=== PATIENT | female | born 1940 | race Caucasian/White ===

== ENCOUNTER → 2016-04-07 | Outpatient (REF) | payer MEDICARE, MEDICAID ==
[2016-04-07 17:50] LABS: BASO # 0.2 K/mm3 (0.0-0.2); BASO % 1.7 % (0.0-1.0); EOS # 0.2 K/mm3 (0.0-0.50); LARGE UNSTAINED CELL # 0.1 K/mm3 (0.0-0.4); LARGE UNSTAINED CELL % 0.8 % (0.0-4.0); LYMPH # 0.9 K/mm3 (1.5-4.5); LYMPH % 7.2 % (24.0-44.0); MEAN CORPUSCULAR HEMOGLOBIN 27.7 pg (27.0-33.0); MEAN CORPUSCULAR HGB CONC 31.9 g/dl (32.0-36.5); MEAN CORPUSCULAR VOLUME 86.8 fl (80.0-96.0); MONO # 0.5 K/mm3 (0.0-0.8); MONO % 4.2 % (0.0-5.0); NEUTROPHILS # 9.2 K/mm3 (1.8-7.7); NEUTROPHILS % 84.1 % (36.0-66.0); PLATELET COUNT, AUTOMATED 277 k/mm3 (150-450); RED CELL DISTRIBUTION WIDTH 14.7 % (11.5-14.5)
[2016-04-07 18:34] LABS: ALBUMIN 3.7 GM/DL (3.2-5.2); ALBUMIN/GLOBULIN RATIO 1.32 (1.00-1.93); ALKALINE PHOSPHATASE 147 U/L (45-117); ALT/SGPT 14 U/L (12-78); ANION GAP 7 MEQ/L (8-16); AST/SGOT 10 U/L (15-37); BILIRUBIN,TOTAL 1.1 MG/DL (0.2-1.0); BLOOD UREA NITROGEN 15 MG/DL (7-18); CALCIUM LEVEL 8.7 MG/DL (8.8-10.2); CARBON DIOXIDE LEVEL 36 MEQ/L (21-32); CHLORIDE LEVEL 101 MEQ/L (98-107); CHOLESTEROL LEVEL 190 MG/DL (<200); CREATININE FOR GFR 0.74 MG/DL (0.55-1.02); GLOMERULAR FILTRATION RATE > 60.0 (>39); GLUCOSE, FASTING 101 MG/DL (83-110); POTASSIUM SERUM 4.4 MEQ/L (3.5-5.1); SODIUM LEVEL 144 MEQ/L (136-145); TOTAL PROTEIN 6.5 GM/DL (6.4-8.2); TRIGLYCERIDES LEVEL 64 MG/DL (<150)
== END ==
LOC: M SFHCCLAY 10:49
PROVIDERS: ATTEND Family Medicine
DX: R53.83 Other fatigue (principal); E78.5 Hyperlipidemia, unspecified; R73.01 Impaired fasting glucose; E55.9 Vitamin D deficiency, unspecified
CPT/HCPCS: 80053; 80061; 82652; 83036; 84443; 85025; G0463

== ENCOUNTER → 2016-11-18 | Outpatient (REF) | payer MEDICARE, MEDICAID ==
[2016-11-19 11:56] LABS: ANION GAP 8 MEQ/L (8-16); BLOOD UREA NITROGEN 17 MG/DL (7-18); CALCIUM LEVEL 8.5 MG/DL (8.8-10.2); CARBON DIOXIDE LEVEL 32 MEQ/L (21-32); CHLORIDE LEVEL 107 MEQ/L (98-107); CREATININE FOR GFR 0.61 MG/DL (0.55-1.02); GLOMERULAR FILTRATION RATE > 60.0 (>39); GLUCOSE, FASTING 107 MG/DL (83-110); POTASSIUM SERUM 4.4 MEQ/L (3.5-5.1); SODIUM LEVEL 147 MEQ/L (136-145)
== END ==
LOC: M SFHCCLAY 13:37
PROVIDERS: ATTEND Family Medicine
DX: R73.01 Impaired fasting glucose (principal)
CPT/HCPCS: 80048; 83036; G0463

== ENCOUNTER 2017-09-17 20:15 | Inpatient (IN) | payer MEDICARE, MEDICAID ==
[2017-09-17] MEDS: CitaloPRAM (CeleXA) 20 MG TAB PO (21:00)
[2017-09-17] MEDS: busPIRone 10 MG TAB PO (21:00)
[2017-09-17] MEDS: NS 1,000 ML IV (21:03)
[2017-09-17] MEDS ORDERED: ACETAMINOPHEN TAB 650MG DOSE (2X325MG) PO (21:15)
[2017-09-17] MEDS: methylPREDNISolone INJ 40 MG/1 ML VIAL (J2920) IV (22:00)
[2017-09-17] MEDS: MAGNESIUM OXIDE 400 MG TAB (MAG-OX) PO (22:00)
[2017-09-17] MEDS: POTASSIUM CHLORIDE 10 MEQ SR TABLET PO (22:00)
[2017-09-17] MEDS ORDERED: DEXTROMETHORPHAN 60MG/10ML SUSP 90ML BTL(DELSYM) PO (22:15)
[2017-09-17 22:59] LABS: ANION GAP 7 MEQ/L (8-16); BILIRUBIN,DIRECT 0.3 MG/DL (0.0-0.2); BLOOD UREA NITROGEN 16 MG/DL (7-18); CALCIUM LEVEL 8.2 MG/DL (8.8-10.2); CARBON DIOXIDE LEVEL 33 MEQ/L (21-32); CHLORIDE LEVEL 103 MEQ/L (98-107); CREATININE FOR GFR 0.57 MG/DL (0.55-1.30); GLOMERULAR FILTRATION RATE > 60.0 (>39); GLUCOSE, FASTING 241 MG/DL (70-100); MAGNESIUM LEVEL 1.9 MG/DL (1.8-2.4); POTASSIUM SERUM 3.9 MEQ/L (3.5-5.1); SODIUM LEVEL 143 MEQ/L (136-145)
[2017-09-17 23:49] LABS: INFLUENZA A AMPLIFICATION NEGATIVE (NEGATIVE); INFLUENZA B AMPLIFICATION NEGATIVE (NEGATIVE)
[2017-09-18] MEDS: methylPREDNISolone INJ 40 MG/1 ML VIAL (J2920) IV ×3 (06:00→21:07)
[2017-09-18 06:43] LABS: HEMATOCRIT 42.7 % (36.0-47.0); HEMOGLOBIN 13.2 g/dl (12.0-15.5); MEAN CORPUSCULAR HEMOGLOBIN 27.2 pg (27.0-33.0); MEAN CORPUSCULAR HGB CONC 30.9 g/dl (32.0-36.5); PLATELET COUNT, AUTOMATED 355 10^3/uL (150-450); RED BLOOD COUNT 4.85 10^6/uL (4.00-5.40); RED CELL DISTRIBUTION WIDTH 13.7 % (11.5-14.5)
[2017-09-18 06:57] LABS: POS COUNT POS FLAG
[2017-09-18 06:59] LABS: WHITE BLOOD COUNT 31.2 10^3/uL (4.0-10.0)
[2017-09-18 07:04] LABS: ALBUMIN 2.5 GM/DL (3.2-5.2); ALBUMIN/GLOBULIN RATIO 0.63 (1.00-1.93); ALKALINE PHOSPHATASE 119 U/L (45-117); ALT/SGPT 13 U/L (12-78); ANION GAP 7 MEQ/L (8-16); AST/SGOT 6 U/L (7-37); BILIRUBIN,DIRECT 0.2 MG/DL (0.0-0.2); BILIRUBIN,TOTAL 0.7 MG/DL (0.2-1.0); BLOOD UREA NITROGEN 19 MG/DL (7-18); CALCIUM LEVEL 8.3 MG/DL (8.8-10.2); CARBON DIOXIDE LEVEL 34 MEQ/L (21-32); CHLORIDE LEVEL 104 MEQ/L (98-107); CREATININE FOR GFR 0.53 MG/DL (0.55-1.30); GLOMERULAR FILTRATION RATE > 60.0 (>39); GLUCOSE, FASTING 201 MG/DL (70-100); POTASSIUM SERUM 4.7 MEQ/L (3.5-5.1); SODIUM LEVEL 145 MEQ/L (136-145); TOTAL PROTEIN 6.5 GM/DL (6.4-8.2)
[2017-09-18] MEDS: TIOTROPIUM INHALER/CAPSULE (SPIRIVA) INH (07:07)
[2017-09-18] MEDS: SYMBICORT 160/4.5MCG INHALER 6GM INH ×2 (07:07→20:07)
[2017-09-18] MEDS: IPRATROPIUM 0.5MG/ALBUTEROL 2.5MG INH SOL UD 3ML (DUONEB)(J7620) NEB ×4 (07:07→20:00)
[2017-09-18 07:36] LABS: ERYTHROCYTE SEDIMENTATION RATE 47 mm/hr (0-30)
[2017-09-18] MEDS: ENOXAPARIN 40 MG/0.4 ML SYRINGE (J1650) SC (08:13)
[2017-09-18] MEDS: MAGNESIUM OXIDE 400 MG TAB (MAG-OX) PO ×2 (08:13→21:06)
[2017-09-18] MEDS: ATORVASTATIN 20 MG TAB PO (08:13)
[2017-09-18] MEDS: busPIRone 10 MG TAB PO ×2 (08:13→21:05)
[2017-09-18] MEDS: LORATADINE 10 MG TAB PO (08:14)
[2017-09-18] MEDS: AZITHROMYCIN INJ 500 MG, VIAL MATE ADAPTER 1 EACH in D5W 250 ML IV (08:14)
[2017-09-18] MEDS: VITAMIN D 1,000 INTERNATIONAL UNITS TABLET PO (08:19)
[2017-09-18] MEDS: PANTOPRAZOLE 40MG TAB (PROTONIX) PO (08:19)
[2017-09-18] MEDS: cefTRIAXone SOD 2 GM in D5W 50 ML IV (09:33)
[2017-09-18] MEDS: NS 1,000 ML IV (10:23)
[2017-09-18 16:02] LABS: REASON FOR REVIEW WBC/LEUKEMIA/BLAST; SLIDE REVIEW Report; SOURCE PERIPHERAL SMEAR
[2017-09-18] MEDS ORDERED: NON-FORMULARY COMPOUNDED MEDICATION PO (21:00)
[2017-09-18] MEDS: CitaloPRAM (CeleXA) 20 MG TAB PO (21:06)
[2017-09-18] MEDS ORDERED: diltiaZEM 125 MG in NS 100 ML IV (23:30)
[2017-09-18] MEDS: METOPROLOL 5 MG/5 ML VIAL IV (23:36)
[2017-09-19] MEDS: METOPROLOL TART 25 MG TABLET PO ×3 (00:34→21:35)
[2017-09-19] MEDS: NS 1,000 ML IV (03:59)
[2017-09-19 05:20] LABS: HEMATOCRIT 42.6 % (36.0-47.0); HEMOGLOBIN 12.7 g/dl (12.0-15.5); MEAN CORPUSCULAR HEMOGLOBIN 26.6 pg (27.0-33.0); MEAN CORPUSCULAR HGB CONC 29.8 g/dl (32.0-36.5); MEAN CORPUSCULAR VOLUME 89.3 fl (80.0-96.0); PLATELET COUNT, AUTOMATED 360 10^3/uL (150-450); RED BLOOD COUNT 4.77 10^6/uL (4.00-5.40); RED CELL DISTRIBUTION WIDTH 13.8 % (11.5-14.5)
[2017-09-19 05:38] LABS: ALBUMIN 2.6 GM/DL (3.2-5.2); ALBUMIN/GLOBULIN RATIO 0.68 (1.00-1.93); ALKALINE PHOSPHATASE 120 U/L (45-117); ALT/SGPT 13 U/L (12-78); ANION GAP 6 MEQ/L (8-16); AST/SGOT 5 U/L (7-37); BILIRUBIN,TOTAL 0.4 MG/DL (0.2-1.0); BLOOD UREA NITROGEN 23 MG/DL (7-18); CALCIUM LEVEL 8.6 MG/DL (8.8-10.2); CARBON DIOXIDE LEVEL 34 MEQ/L (21-32); CHLORIDE LEVEL 105 MEQ/L (98-107); CREATININE FOR GFR 0.59 MG/DL (0.55-1.30); GLOMERULAR FILTRATION RATE > 60.0 (>39); GLUCOSE, FASTING 225 MG/DL (70-100); POTASSIUM SERUM 4.7 MEQ/L (3.5-5.1); SODIUM LEVEL 145 MEQ/L (136-145); TOTAL PROTEIN 6.4 GM/DL (6.4-8.2)
[2017-09-19] MEDS: methylPREDNISolone INJ 40 MG/1 ML VIAL (J2920) IV (06:20)
[2017-09-19] MEDS: TIOTROPIUM INHALER/CAPSULE (SPIRIVA) INH (07:49)
[2017-09-19] MEDS: SYMBICORT 160/4.5MCG INHALER 6GM INH ×2 (07:49→19:43)
[2017-09-19] MEDS: IPRATROPIUM 0.5MG/ALBUTEROL 2.5MG INH SOL UD 3ML (DUONEB)(J7620) NEB ×3 (07:49→19:51)
[2017-09-19] MEDS: AZITHROMYCIN INJ 500 MG, VIAL MATE ADAPTER 1 EACH in D5W 250 ML IV (08:37)
[2017-09-19] MEDS: ATORVASTATIN 20 MG TAB PO (08:37)
[2017-09-19] MEDS: PANTOPRAZOLE 40MG TAB (PROTONIX) PO (08:38)
[2017-09-19] MEDS: VITAMIN D 1,000 INTERNATIONAL UNITS TABLET PO (08:38)
[2017-09-19] MEDS: LORATADINE 10 MG TAB PO (08:38)
[2017-09-19] MEDS: busPIRone 10 MG TAB PO ×2 (08:38→21:34)
[2017-09-19] MEDS: MAGNESIUM OXIDE 400 MG TAB (MAG-OX) PO ×2 (08:38→21:35)
[2017-09-19] MEDS: ENOXAPARIN 40 MG/0.4 ML SYRINGE (J1650) SC (08:39)
[2017-09-19] MEDS: cefTRIAXone SOD 2 GM in D5W 50 ML IV (10:00)
[2017-09-19 12:31] LABS: BASO # 0.1 10^3/uL (0.0-0.2); BASO % 0.2 % (0.0-1.0); HEMATOCRIT 43.7 % (36.0-47.0); HEMOGLOBIN 13.4 g/dl (12.0-15.5); LYMPH # 0.3 10^3/uL (1.5-4.5); LYMPH % 1.1 % (24.0-44.0); MEAN CORPUSCULAR HEMOGLOBIN 27.5 pg (27.0-33.0); MEAN CORPUSCULAR HGB CONC 30.7 g/dl (32.0-36.5); MEAN CORPUSCULAR VOLUME 89.7 fl (80.0-96.0); MONO # 0.6 10^3/uL (0.0-0.8); MONO % 2.2 % (0.0-5.0); PLATELET COUNT, AUTOMATED 389 10^3/uL (150-450); RED BLOOD COUNT 4.87 10^6/uL (4.00-5.40); RED CELL DISTRIBUTION WIDTH 13.9 % (11.5-14.5); WHITE BLOOD COUNT 26.5 10^3/uL (4.0-10.0)
[2017-09-19 12:51] LABS: THYROID STIMULATING HORMONE 0.114 uIU/ML (0.358-3.740)
[2017-09-19 12:54] LABS: POSITIVE DIFF POS FLAG
[2017-09-19 12:55] LABS: NEUTROPHILS % 94.5 % (36.0-66.0)
[2017-09-19] MEDS: predniSONE 20 MG TAB PO (15:14)
[2017-09-19] MEDS: CitaloPRAM (CeleXA) 20 MG TAB PO (21:34)
[2017-09-20 05:12] LABS: HEMATOCRIT 42.3 % (36.0-47.0); HEMOGLOBIN 12.9 g/dl (12.0-15.5); MEAN CORPUSCULAR HEMOGLOBIN 27.3 pg (27.0-33.0); MEAN CORPUSCULAR HGB CONC 30.5 g/dl (32.0-36.5); MEAN CORPUSCULAR VOLUME 89.6 fl (80.0-96.0); PLATELET COUNT, AUTOMATED 323 10^3/uL (150-450); RED BLOOD COUNT 4.72 10^6/uL (4.00-5.40); RED CELL DISTRIBUTION WIDTH 13.7 % (11.5-14.5); WHITE BLOOD COUNT 18.2 10^3/uL (4.0-10.0)
[2017-09-20 05:35] LABS: ALBUMIN 2.5 GM/DL (3.2-5.2); ALBUMIN/GLOBULIN RATIO 0.71 (1.00-1.93); ALKALINE PHOSPHATASE 101 U/L (45-117); ALT/SGPT 14 U/L (12-78); ANION GAP 3 MEQ/L (8-16); AST/SGOT 5 U/L (7-37); BILIRUBIN,TOTAL 0.4 MG/DL (0.2-1.0); BLOOD UREA NITROGEN 25 MG/DL (7-18); CALCIUM LEVEL 8.4 MG/DL (8.8-10.2); CARBON DIOXIDE LEVEL 39 MEQ/L (21-32); CHLORIDE LEVEL 101 MEQ/L (98-107); CREATININE FOR GFR 0.58 MG/DL (0.55-1.30); GLOMERULAR FILTRATION RATE > 60.0 (>39); GLUCOSE, FASTING 211 MG/DL (70-100); POTASSIUM SERUM 4.6 MEQ/L (3.5-5.1); SODIUM LEVEL 143 MEQ/L (136-145)
[2017-09-20] MEDS: IPRATROPIUM 0.5MG/ALBUTEROL 2.5MG INH SOL UD 3ML (DUONEB)(J7620) NEB ×3 (07:16→15:24)
[2017-09-20] MEDS: TIOTROPIUM INHALER/CAPSULE (SPIRIVA) INH (07:16)
[2017-09-20] MEDS: SYMBICORT 160/4.5MCG INHALER 6GM INH ×2 (07:16→19:42)
[2017-09-20] MEDS: AZITHROMYCIN INJ 500 MG, VIAL MATE ADAPTER 1 EACH in D5W 250 ML IV (08:04)
[2017-09-20] MEDS: predniSONE 20 MG TAB PO (09:34)
[2017-09-20] MEDS: ENOXAPARIN 40 MG/0.4 ML SYRINGE (J1650) SC (09:34)
[2017-09-20] MEDS: MAGNESIUM OXIDE 400 MG TAB (MAG-OX) PO ×2 (09:35→20:12)
[2017-09-20] MEDS: VITAMIN D 1,000 INTERNATIONAL UNITS TABLET PO (09:36)
[2017-09-20] MEDS: busPIRone 10 MG TAB PO ×2 (09:36→20:13)
[2017-09-20] MEDS: METOPROLOL TART 25 MG TABLET PO ×2 (09:36→20:15)
[2017-09-20] MEDS: LORATADINE 10 MG TAB PO (09:36)
[2017-09-20] MEDS: cefTRIAXone SOD 2 GM in D5W 50 ML IV (09:36)
[2017-09-20] MEDS: ATORVASTATIN 20 MG TAB PO (09:36)
[2017-09-20] MEDS: PANTOPRAZOLE 40MG TAB (PROTONIX) PO (09:37)
[2017-09-20 13:23] LABS: FREE THYROXINE INDEX 3.2 % (1.3-4.8); T UPTAKE 41 % (30-39); THYROID STIMULATING HORMONE 0.054 uIU/ML (0.358-3.740); THYROXINE (T4) 7.8 UG/DL (4.5-12.0)
[2017-09-20] MEDS: ASPIRIN 325 MG TAB PO (13:35)
[2017-09-20 14:13] LABS: ESTIMATED AVERAGE GLUCOSE 154 MG/DL (60-110)
[2017-09-20] MEDS: CitaloPRAM (CeleXA) 20 MG TAB PO (20:11)
[2017-09-20] MEDS: CEFDINIR 300 MG CAP (OMNICEF) PO (20:15)
[2017-09-21 05:07] LABS: HEMATOCRIT 43.1 % (36.0-47.0); HEMOGLOBIN 13.3 g/dl (12.0-15.5); MEAN CORPUSCULAR HEMOGLOBIN 27.4 pg (27.0-33.0); MEAN CORPUSCULAR HGB CONC 30.9 g/dl (32.0-36.5); MEAN CORPUSCULAR VOLUME 88.9 fl (80.0-96.0); PLATELET COUNT, AUTOMATED 295 10^3/uL (150-450); RED BLOOD COUNT 4.85 10^6/uL (4.00-5.40); RED CELL DISTRIBUTION WIDTH 13.8 % (11.5-14.5); WHITE BLOOD COUNT 13.8 10^3/uL (4.0-10.0)
[2017-09-21 05:25] LABS: ALBUMIN 2.6 GM/DL (3.2-5.2); ALBUMIN/GLOBULIN RATIO 0.76 (1.00-1.93); ALKALINE PHOSPHATASE 99 U/L (45-117); ALT/SGPT 13 U/L (12-78); ANION GAP 4 MEQ/L (8-16); AST/SGOT 5 U/L (7-37); BILIRUBIN,TOTAL 0.7 MG/DL (0.2-1.0); BLOOD UREA NITROGEN 23 MG/DL (7-18); CALCIUM LEVEL 8.2 MG/DL (8.8-10.2); CARBON DIOXIDE LEVEL 41 MEQ/L (21-32); CHLORIDE LEVEL 100 MEQ/L (98-107); CREATININE FOR GFR 0.56 MG/DL (0.55-1.30); GLOMERULAR FILTRATION RATE > 60.0 (>39); GLUCOSE, FASTING 111 MG/DL (70-100); POTASSIUM SERUM 4.2 MEQ/L (3.5-5.1); SODIUM LEVEL 145 MEQ/L (136-145)
[2017-09-21] MEDS: SYMBICORT 160/4.5MCG INHALER 6GM INH ×2 (07:58→21:25)
[2017-09-21] MEDS: TIOTROPIUM INHALER/CAPSULE (SPIRIVA) INH (07:58)
[2017-09-21] MEDS: ASPIRIN 325 MG TAB PO (08:56)
[2017-09-21] MEDS: ENOXAPARIN 40 MG/0.4 ML SYRINGE (J1650) SC (08:56)
[2017-09-21] MEDS: AZITHROMYCIN 250 MG TAB PO (08:57)
[2017-09-21] MEDS: PANTOPRAZOLE 40MG TAB (PROTONIX) PO (08:57)
[2017-09-21] MEDS: predniSONE 20 MG TAB PO (08:57)
[2017-09-21] MEDS: ATORVASTATIN 20 MG TAB PO (08:57)
[2017-09-21] MEDS: MAGNESIUM OXIDE 400 MG TAB (MAG-OX) PO ×2 (08:57→20:42)
[2017-09-21] MEDS: CEFDINIR 300 MG CAP (OMNICEF) PO ×2 (08:57→20:41)
[2017-09-21] MEDS: LORATADINE 10 MG TAB PO (08:58)
[2017-09-21] MEDS: VITAMIN D 1,000 INTERNATIONAL UNITS TABLET PO (08:58)
[2017-09-21] MEDS: busPIRone 10 MG TAB PO ×2 (08:58→20:41)
[2017-09-21] MEDS: METOPROLOL TART 25 MG TABLET PO ×2 (08:58→20:43)
[2017-09-21] MEDS ORDERED: SLF 3 ML SYR IV (18:45)
[2017-09-21] MEDS: CitaloPRAM (CeleXA) 20 MG TAB PO (20:41)
[2017-09-21] MEDS: SLF 3 ML SYR IV (22:00)
[2017-09-22 00:07] LABS: BODY FLUID CULTURE Not Indicated (.); LEGIONELLA ANTIGEN URINE Negative (Negative); ORGANISM ID Not indicated. (.); SPECIMEN SOURCE Urine (.); URINE STREP PNEUMONIAE ANTIGEN Negative (Negative)
[2017-09-22] MEDS: SLF 3 ML SYR IV ×3 (05:29→21:23)
[2017-09-22 05:37] LABS: HEMATOCRIT 43.6 % (36.0-47.0); HEMOGLOBIN 13.7 g/dl (12.0-15.5); MEAN CORPUSCULAR HEMOGLOBIN 27.4 pg (27.0-33.0); MEAN CORPUSCULAR HGB CONC 31.4 g/dl (32.0-36.5); MEAN CORPUSCULAR VOLUME 87.2 fl (80.0-96.0); PLATELET COUNT, AUTOMATED 297 10^3/uL (150-450); RED CELL DISTRIBUTION WIDTH 13.6 % (11.5-14.5); WHITE BLOOD COUNT 12.9 10^3/uL (4.0-10.0)
[2017-09-22 06:03] LABS: ALBUMIN 2.7 GM/DL (3.2-5.2); ALBUMIN/GLOBULIN RATIO 0.82 (1.00-1.93); ALKALINE PHOSPHATASE 93 U/L (45-117); ALT/SGPT 15 U/L (12-78); ANION GAP 4 MEQ/L (8-16); AST/SGOT 6 U/L (7-37); BILIRUBIN,TOTAL 1.4 MG/DL (0.2-1.0); BLOOD UREA NITROGEN 27 MG/DL (7-18); CALCIUM LEVEL 8.3 MG/DL (8.8-10.2); CARBON DIOXIDE LEVEL 40 MEQ/L (21-32); CHLORIDE LEVEL 99 MEQ/L (98-107); CREATININE FOR GFR 0.58 MG/DL (0.55-1.30); GLOMERULAR FILTRATION RATE > 60.0 (>39); GLUCOSE, FASTING 100 MG/DL (70-100); SODIUM LEVEL 143 MEQ/L (136-145)
[2017-09-22] MEDS: SYMBICORT 160/4.5MCG INHALER 6GM INH ×2 (07:20→20:24)
[2017-09-22] MEDS: TIOTROPIUM INHALER/CAPSULE (SPIRIVA) INH (07:20)
[2017-09-22] MEDS: ASPIRIN 325 MG TAB PO (09:00)
[2017-09-22] MEDS: ENOXAPARIN 40 MG/0.4 ML SYRINGE (J1650) SC (09:00)
[2017-09-22] MEDS: CEFDINIR 300 MG CAP (OMNICEF) PO ×2 (09:00→20:54)
[2017-09-22] MEDS: VITAMIN D 1,000 INTERNATIONAL UNITS TABLET PO (09:00)
[2017-09-22] MEDS: METOPROLOL TART 25 MG TABLET PO ×2 (09:01→20:55)
[2017-09-22] MEDS: AZITHROMYCIN 250 MG TAB PO (09:01)
[2017-09-22] MEDS: busPIRone 10 MG TAB PO ×2 (09:01→20:55)
[2017-09-22] MEDS: MAGNESIUM OXIDE 400 MG TAB (MAG-OX) PO ×2 (09:01→20:54)
[2017-09-22] MEDS: LORATADINE 10 MG TAB PO (09:01)
[2017-09-22] MEDS: predniSONE 20 MG TAB PO (09:01)
[2017-09-22] MEDS: ATORVASTATIN 20 MG TAB PO (09:01)
[2017-09-22] MEDS: PANTOPRAZOLE 40MG TAB (PROTONIX) PO (09:07)
[2017-09-22] MEDS: CitaloPRAM (CeleXA) 20 MG TAB PO (20:54)
[2017-09-23 04:09] LABS: HEMATOCRIT 44.7 % (36.0-47.0); MEAN CORPUSCULAR HEMOGLOBIN 27.3 pg (27.0-33.0); MEAN CORPUSCULAR HGB CONC 31.3 g/dl (32.0-36.5); MEAN CORPUSCULAR VOLUME 87.3 fl (80.0-96.0); PLATELET COUNT, AUTOMATED 292 10^3/uL (150-450); RED BLOOD COUNT 5.12 10^6/uL (4.00-5.40); RED CELL DISTRIBUTION WIDTH 13.3 % (11.5-14.5); WHITE BLOOD COUNT 14.2 10^3/uL (4.0-10.0)
[2017-09-23 04:28] LABS: ALBUMIN 2.8 GM/DL (3.2-5.2); ALBUMIN/GLOBULIN RATIO 0.85 (1.00-1.93); ALKALINE PHOSPHATASE 94 U/L (45-117); ALT/SGPT 15 U/L (12-78); ANION GAP 4 MEQ/L (8-16); AST/SGOT 4 U/L (7-37); BILIRUBIN,TOTAL 1.3 MG/DL (0.2-1.0); BLOOD UREA NITROGEN 28 MG/DL (7-18); CALCIUM LEVEL 8.1 MG/DL (8.8-10.2); CARBON DIOXIDE LEVEL 39 MEQ/L (21-32); CHLORIDE LEVEL 100 MEQ/L (98-107); CREATININE FOR GFR 0.62 MG/DL (0.55-1.30); GLOMERULAR FILTRATION RATE > 60.0 (>39); GLUCOSE, FASTING 143 MG/DL (70-100); SODIUM LEVEL 143 MEQ/L (136-145); TOTAL PROTEIN 6.1 GM/DL (6.4-8.2)
[2017-09-23] MEDS: SLF 3 ML SYR IV (05:17)
[2017-09-23] MEDS: TIOTROPIUM INHALER/CAPSULE (SPIRIVA) INH (07:34)
[2017-09-23] MEDS: SYMBICORT 160/4.5MCG INHALER 6GM INH (07:35)
[2017-09-23] MEDS: CEFDINIR 300 MG CAP (OMNICEF) PO (09:44)
[2017-09-23] MEDS: ENOXAPARIN 40 MG/0.4 ML SYRINGE (J1650) SC (09:44)
[2017-09-23] MEDS: PANTOPRAZOLE 40MG TAB (PROTONIX) PO (09:44)
[2017-09-23] MEDS: busPIRone 10 MG TAB PO (09:44)
[2017-09-23] MEDS: ASPIRIN 325 MG TAB PO (09:44)
[2017-09-23] MEDS: AZITHROMYCIN 250 MG TAB PO (09:44)
[2017-09-23] MEDS: predniSONE 20 MG TAB PO (09:44)
[2017-09-23] MEDS: ATORVASTATIN 20 MG TAB PO (09:45)
[2017-09-23] MEDS: VITAMIN D 1,000 INTERNATIONAL UNITS TABLET PO (09:45)
[2017-09-23] MEDS: LORATADINE 10 MG TAB PO (09:45)
[2017-09-23] MEDS: METOPROLOL TART 25 MG TABLET PO (09:45)
[2017-09-23] MEDS: MAGNESIUM OXIDE 400 MG TAB (MAG-OX) PO (09:45)
== END 2017-09-23 12:30 | disposition home or self-care (01) | DRG 193 ==
LOC: M PCU 09-19 00:12 → M ICU 09-18 23:27
DX: J18.9 Pneumonia, unspecified organism (principal); J96.20 Acute and chronic respiratory failure, unspecified whether with hypoxia or hypercapnia; J44.1 Chronic obstructive pulmonary disease with (acute) exacerbation; Z66 Do not resuscitate; I48.0 Paroxysmal atrial fibrillation; K21.9 Gastro-esophageal reflux disease without esophagitis; F41.9 Anxiety disorder, unspecified; J30.9 Allergic rhinitis, unspecified; E66.9 Obesity, unspecified; E55.9 Vitamin D deficiency, unspecified; F32.9 Major depressive disorder, single episode, unspecified; E78.5 Hyperlipidemia, unspecified; Z99.81 Dependence on supplemental oxygen; Z90.49 Acquired absence of other specified parts of digestive tract; Z90.710 Acquired absence of both cervix and uterus; Z98.49 Cataract extraction status, unspecified eye; Z87.891 Personal history of nicotine dependence; Z79.899 Other long term (current) drug therapy; Z79.51 Long term (current) use of inhaled steroids

== ENCOUNTER → 2018-01-26 | Outpatient (REF) | payer MEDICARE, MEDICAID ==
[2018-01-26 17:25] LABS: ALBUMIN 3.2 GM/DL (3.2-5.2); ALBUMIN/GLOBULIN RATIO 1.07 (1.00-1.93); ALKALINE PHOSPHATASE 110 U/L (45-117); ALT/SGPT 13 U/L (12-78); ANION GAP 7 MEQ/L (8-16); AST/SGOT 11 U/L (7-37); BILIRUBIN,TOTAL 0.8 MG/DL (0.2-1.0); BLOOD UREA NITROGEN 15 MG/DL (7-18); CALCIUM LEVEL 8.5 MG/DL (8.8-10.2); CARBON DIOXIDE LEVEL 36 MEQ/L (21-32); CHLORIDE LEVEL 101 MEQ/L (98-107); GLOMERULAR FILTRATION RATE > 60.0 (>39); GLUCOSE, FASTING 109 MG/DL (70-100); POTASSIUM SERUM 3.5 MEQ/L (3.5-5.1); SODIUM LEVEL 144 MEQ/L (136-145); TOTAL PROTEIN 6.2 GM/DL (6.4-8.2)
[2018-01-26 17:33] LABS: ESTIMATED AVERAGE GLUCOSE 128 MG/DL (60-110); HEMOGLOBIN A1c 6.1 %
== END ==
LOC: M SFHCCLAY 11:38
DX: R73.01 Impaired fasting glucose (principal)
CPT/HCPCS: 80053

== ENCOUNTER → 2018-03-09 | Outpatient (CLI) | payer MEDICARE, MEDICAID ==
[~2018-03-09] MED LIST: ALBU83IN INH; ASPI1TAB20 PO; ATOR1TAB21 PO; AZIT-12 PO; BUSP10TA PO; CELE20TA PO; CITA-230 PO; DALI1TAB2 PO; LORA-243 PO; METO1TAB87 PO; OMEP-221 PO; PRED10TA2 PO; PRED20TA PO; PROAAER10 INH; ROBI30SU PO; SYMB16INH INH; TIOT18INH INH; VITA125C2 PO; VITA200038 PO
--- NOTE | 2018-03-10 05:34 | REP ---
Clinical: History of COPD with dyspnea. Technique: PA and lateral. Comparison: None. Findings: Diffuse chronic-appearing interstitial changes and scattered scarring / fibrosis noted. Superimposed bibasilar atelectasis is suggested along with possible interstitial edema. No effusion. No pneumothorax. Mediastinum and cardiac silhouette within normal limits. Skeletal structures demonstrate diffuse osteopenia and degenerative change. Impression: Chronic changes with superimposed bibasilar atelectasis and possible interstitial edema.
== END ==
LOC: M CLY 14:04
PROVIDERS: ATTEND Family Medicine
DX: J98.11 Atelectasis (principal); M85.88 Other specified disorders of bone density and structure, other site; J44.1 Chronic obstructive pulmonary disease with (acute) exacerbation
CPT/HCPCS: 71046; G0463

== ENCOUNTER → 2018-06-24 | Outpatient (CLI) | payer MEDICARE ==
--- NOTE | 2018-06-24 12:38 | REP ---
Chest two views HISTORY: Cough Comparison: 03/09/2018 An increase in interstitial markings is present in the lungs consistent with chronic interstitial fibrosis. The cardiac silhouette is enlarged. The pulmonary vasculature is prominent. The bony structure is intact. IMPRESSION: 1. Chronic interstitial fibrosis. 2. Cardiomegaly.
== END ==
LOC: M CLY 11:49
PROVIDERS: ATTEND Family Medicine
DX: J84.10 Pulmonary fibrosis, unspecified (principal); I51.7 Cardiomegaly; R05 Cough; R06.02 Shortness of breath

== ENCOUNTER 2018-06-27 01:57 | Inpatient (IN) | payer MEDICARE ==
[~2018-06-27] VITALS: Ht 147.3 cm; Wt 75.0 kg
[2018-06-27] VITALS (25 sets, daily range): BP systolic 102–168; BP diastolic 56–75; O2SAT 98–99
[~2018-06-27 01:57] MED LIST changes: -CITA-230 PO; +CITA20TA7 PO
[2018-06-27 04:42] LABS: ABG BASE EXCESS 5.9 (-2.0-2.0); ABG HCO3 39.5 MEQ/L (22.0-26.0); ABG O2 SATURATION 98.8 % (95.0-99.0); ABG PARTIAL PRESSURE CO2 121.9 mmHg (35.0-45.0); ABG PARTIAL PRESSURE O2 150.6 mmHg (75.0-100.0); ABG STANDARD HCO3 29.9 MEQ/L (22.0-26.0); ABG TOTAL CO2 43.3 MEQ/L (23.0-31.0); ABG pH (ARTERIAL) 7.129 UNITS (7.350-7.450)
[2018-06-27] MEDS ORDERED: PRED20TA PO (04:50)
[2018-06-27] MEDS ORDERED: METO25TA4 PO (04:50)
[2018-06-27 05:06] LABS: HEMOGLOBIN 13.1 g/dl (12.0-15.5); MEAN CORPUSCULAR HEMOGLOBIN 27.6 pg (27.0-33.0); MEAN CORPUSCULAR HGB CONC 29.8 g/dl (32.0-36.5); MEAN CORPUSCULAR VOLUME 92.6 fl (80.0-96.0); PLATELET COUNT, AUTOMATED 335 10^3/uL (150-450); RED BLOOD COUNT 4.75 10^6/uL (4.00-5.40)
[2018-06-27 05:26] LABS: ALBUMIN 2.9 GM/DL (3.2-5.2); ALT/SGPT 14 U/L (12-78); BILIRUBIN,TOTAL 1.3 MG/DL (0.2-1.0); BLOOD UREA NITROGEN 24 MG/DL (7-18); CALCIUM LEVEL 8.3 MG/DL (8.8-10.2); CARBON DIOXIDE LEVEL 35 MEQ/L (21-32); CHLORIDE LEVEL 100 MEQ/L (98-107); CREATININE FOR GFR 0.86 MG/DL (0.55-1.30); GLOMERULAR FILTRATION RATE > 60.0 (>39); GLUCOSE, FASTING 238 MG/DL (70-100); SODIUM LEVEL 139 MEQ/L (136-145); TOTAL PROTEIN 7.4 GM/DL (6.4-8.2)
[2018-06-27] MEDS ORDERED: VANCOMYCIN HCL 1,000 MG, VIAL MATE ADAPTER 1 EACH in D5W 250 ML IV ONE (05:30)
[2018-06-27 05:35] LABS: WHITE BLOOD COUNT 36.3 10^3/uL (4.0-10.0)
[2018-06-27 05:46] LABS: CPK CREATINE PHOSPHOKINASE 104 U/L (26-192); MB/CK RELATIVE INDEX 2.69 (< OR =4); TROPONIN I < 0.02 NG/ML (< 0.10)
[2018-06-27 05:58] LABS: ABG BASE EXCESS 2.5 (-2.0-2.0); ABG HCO3 36.2 MEQ/L (22.0-26.0); ABG O2 SATURATION 99.1 % (95.0-99.0); ABG PARTIAL PRESSURE O2 158.2 mmHg (75.0-100.0); ABG STANDARD HCO3 26.7 MEQ/L (22.0-26.0)
[2018-06-27 06:01] LABS: ABG PARTIAL PRESSURE CO2 121.1 mmHg (35.0-45.0); ABG pH (ARTERIAL) 7.094 UNITS (7.350-7.450)
[2018-06-27] MEDS ORDERED: SODIUM BICARBONATE 8.4% INJ 50 ML SYRINGE IV STA (06:03)
[2018-06-27] MEDS ORDERED: SODIUM BICARBONATE 8.4% INJ 50 ML SYRINGE As Ordered ONE (06:04)
[2018-06-27] MEDS ORDERED: ETOMIDATE INJ 20MG/10ML VIAL As Ordered ONE (06:07)
[2018-06-27] MEDS ORDERED: SUCCINYLCHOLINE INJ 200 MG/10 ML VIAL (J0330) As Ordered ONE (06:07)
[2018-06-27] MEDS ORDERED: PROPOFOL 1,000 MG/100 ML VIAL As Ordered ONE (06:12)
--- NOTE | 2018-06-27 06:27 | HPEPDOC ---
[facility] Medical History & Physical Date of Admission Jun 27, 2018 History and Physical CHIEF COMPLAINT: Shortness of breath HISTORY OF PRESENT ILLNESS: Emily Novoa is a 77 YO F with history of COPD (on 2L home O2) who presented as transfer from [facility] with shortness of breath and altered mental status. Reportedly, her shortness of breath started about 1 week ago and has been gradually worsening. The dyspnea is described as moderate and is worsened by walking, exertion and cough. The patient has had sputum production. No fever, chills, chest pain, or peripheral edema reported. No sick contacts reported. At [facility], she was found to have a narrow complex SVT in the 190s with RBBB and questionable Q waves, was given 6mg followed by 12mg Adenosine with no response and was subsequently place on a Cardizem drip. Upon arrival at [facility] her heart rate was in the 120s. A CXR was suspicious for RLL infiltrate and her oxygen saturation was in the 80s on 4-5L oxygen. It was determined that she might need BiPaP treatment, so she was transferred to [facility]. PAST MEDICAL HISTORY: 1. Gastroesophageal reflux disease. 2. Chronic respiratory failure secondary to COPD, normally on 2 liters of oxygen at home at night. 3. Depression/anxiety. 4. Hyperlipidemia. 5. History of one prior intubation for pneumonia. PAST SURGICAL HISTORY: 1. cholecystectomy. 2. cataract surgery. 3. hysterectomy. SOCIAL HISTORY: Lives with her sister. Ex-smoker, stopped in 2001. Denies alcoh ol use. FAMILY HISTORY: Reviewed and noncontributory. REVIEW OF SYSTEMS: Unable to obtain HOME MEDICATIONS: Please see below. PHYSICAL EXAMINATION: VITAL SIGNS: Temperature 98.4, pulse 128, respiratory rate 26, blood pressure 148/63, pulse oximetry 97% on 70%FiO2 GENERAL APPEARANCE: Laying in bed, not responding, using accessory muscles of breathing HEENT: dry mucus membranes CARDIOVASCULAR: tachycardia, no murmurs/rubs/gallops LUNGS: rhoncherous breath sounds diffusely ABDOMEN: soft, nontender to palpation, +BS MUSCULOSKELETAL: moves all extremities well EXTREMITIES: no clubbing/cyanosis/edema NEUROLOGICAL: unable to assess PSYCHIATRIC: unable to assess LABORATORY DATA: See below. IMAGING: MICROBIOLOGY: Please see below. ASSESSMENT: This is a 77 YO F with history of COPD on home oxygen who presented as transfer from [facility] for COPD exacerbation vs bacterial pneumonia with hypoxemia and sinus tachycardia. She will be admitted to the ICU for close observation and BiPaP ventilation PLAN: #Hypoxemia: COPD exacerbation vs bacterial pneumonia vs Sepsis -Patient was reportedly had fevers, chills and WBC 28.0 at [facility] -Vancomycin and Zosyn coverage for sepsis with plan to de-escalate -Blood cultures pending -Sputum culture pending -Respiratory panel pending -AB.129/121/150 -Lactic acid pending -s/p IV Decadron 8mg #Narrow complex tachycardia: Patient did not respond to Adenosine x2 -Cardizem 15mg IV -EKG demonstrates sinus rhythm with RBBB and ST depression Laboratory Data Labs 24H Laboratory Tests 2 06/27/18 04:36: Blood Gas Bicarbonate Standard 29.9H, Arterial Blood pH 7.129*L, Arterial Blood Partial Pressure CO2 121.9*H, Arterial Blood Partial Pressure O2 150.6H, Arterial Blood Total CO2 43.3H, Arterial Blood HCO3 39.5H, Arterial Blood Base Excess 5.9H, Arterial Blood Oxygen Saturation 98.8 06/27/18 04:56: CBC/BMP Microbiology Microbiology 06/27/18 Blood Culture, Received Pending Home Medications Scheduled Albuterol Sulfate (Proair Hfa) 108 Mcg/Act Aer, 2 PUFF INH BID Ascorbic Acid (Vitamin C Gummies) 125 Mg Chw, 125 MG PO DAILY Atorvastatin Calcium (Atorvastatin Calcium) 20 Mg Tab, 20 MG PO DAILY Budesonide/Formoterol (Symbicort 160-4.5 Mcg Inhaler) 60 Puff/Inhaler Aers, 2 PUFF INH BID Buspirone HCl (Buspirone HCl) 10 Mg Tab, 10 MG PO BID Cholecalciferol (Vitamin D3) (Vitamin D3) 2,000 Unit Tab, 2,000 UNIT PO DAILY Citalopram Hydrobromide (Citalopram HBr) 20 Mg Tab, 20 MG PO DAILY Loratadine (Loratadine) 10 Mg Tab, 10 MG PO DAILY Metoprolol Tartrate (Metoprolol Tartrate) 25 Mg Tab, 25 MG PO BID Omeprazole (Omeprazole) 40 Mg Cap, 40 MG PO DAILY Prednisone (Prednisone) 20 Mg Tab, 20 MG PO DAILY Roflumilast (Daliresp) 500 Mcg Tab, 500 MCG PO DAILY Tiotropium [place] Monohydrate (Spiriva) 5 Inhalation/Inhaler Powd, 1 PUFF INH DAILY Allergies Coded Allergies: No Known Allergies (Unverified , 09/17/17) GME ATTESTATION GME ATTESTATION My faculty preceptor for this patient encounter was physically present during the encounter and was fully available. All aspects of the patient interview, examination, medical decision making process, and medical care plan development were reviewed and approved by the faculty preceptor. The faculty preceptor is aware and concurs with the plan as stated in the body of this note and will attest to such by his/her cosignature. DEO BABCOCK MD Jun 27, 2018 05:12
--- NOTE | 2018-06-27 06:37 | PHACANCOPD ---
PHARMACY VANCOMYCIN DOSING Pt Demographics Demographics Patient Age:77 , Weight: , Gender: female Adjusted Body Weight Date: 06/27/18, Adjusted Body Weight: Kg Vancomycin Vancomycin indication: SEPSIS Vancomycin Target Ranges: 15-20 mcg/ml Vancomycin Load Y/N: No Load Dose Date Time Vancomycin Load Dose: Date: Time: Vancomycin Dose Date: 06/27/18. Current Vancomycin Dose: [1GM Q18H] Intermittent Dosing?: No Labs Labs Laboratory Tests 06/27/18 04:56 Red Blood Count 4.75, Mean Corpuscular Volume 92.6, Mean Corpuscular Hemoglobin 27.6, Mean Corpuscular Hemoglobin Concent 29.8 L, Red Cell Distribution Width 14.7 H, Calcium Level 8.3 L, Aspartate Amino Transf (AST/SGOT) 13, Alanine Aminotransferase (ALT/SGPT) 14, Total Creatine Kinase 104, Alkaline Phosphatase 137 H, Total Bilirubin 1.3 H, Total Protein 7.4, Albumin 2.9 L Micro Microbiology 06/27/18 Blood Culture, Received Pending 06/27/18 Blood Culture, Received Pending 06/27/18 Respiratory Virus Panel (PCR) ([facility]), Received Pending 06/27/18 Urine Culture, Received Pending Creatinine Clearance Date:06/27/18. Creatinine Clearance: [65.8].CALCULATED Pending Labs Vancomycin trough due 06/28@1100 Assessment and Plan Maintaining Current Dose?: Yes Reason for dose change: No Dose Change Pharmacist Note Pharmacist Note Date: 06/27/18. Pharmacist note:77YOF admitted w/sepsis, SCR =0.86,CRCL=65.8(calculated),NKDA, Receiving PIP/TAZO 4.5 grams IV Q6H plus Vancomycin (trough goal 15-20)per Pharmacy consult.Vancomycin 1 gm administered 06/27@0600-Will Begin 1 gram Q18H regimen 06/27@1800.First trough is to be drawn 06/28@1100-Will continue to follow and will adjust dose/schedule as needed KAREN DING PHARMACY Jun 27, 2018 06:37
--- NOTE | 2018-06-27 06:37 | ECGEPIP ---
Stationary ECG Study [facility] Test Date: 2018-06-27 Pat Name: EDER MEDINA Department: Room: [place] [address] Gender: F Tenter: MARIELLE : 1940 Requested By: SHIN Tamayo Order Number: [id number] Reading MD: Kim Mosley Measurements Intervals [place] Rate: 129 P: 223 DC: 114 QRS: 240 QRSD: 204 T: -34 QT: 335 QTc: 492 Interpretive Statements SINUS TACHYCARDIA WITH SHORT DC INTERVAL WITH OCCASIONAL ATRIAL PREMATURE COMPLEXES NEW INTRAVENTRICULAR CONDUCTION DELAY Right bundle branch block POSSIBLE RVH INDETERMINATE AXIS V4 AND 5 UNREADABLE PRIOR WITH Left anterior fascicular block RATE FASTER ON CURRENT 09/20/17 Electronically Signed On 06-27-2018 6:37:13 EDT by Kim Mosley
[2018-06-27] MEDS ORDERED: ETOMIDATE INJ 20MG/10ML VIAL IV ONE (07:00)
[2018-06-27] MEDS ORDERED: SUCCINYLCHOLINE INJ 200 MG/10 ML VIAL (J0330) IV ONE (07:00)
[2018-06-27] MEDS: PROPOFOL 1,000 MG in APPROPRIATE DILUENT 1 EA IV SCH ×4 (07:17→19:27)
[2018-06-27] MEDS ORDERED: GLUCOSE 4 GM CHEW TABLET PO PRN (07:30)
[2018-06-27] MEDS ORDERED: GLUCAGON FOR INJ 1 MG VIAL (J1610) SC PRN (07:30)
[2018-06-27] MEDS ORDERED: DEXTROSE 50% 50 ML SYRINGE IV PRN (07:30)
[2018-06-27 07:34] LABS: NT-PRO BNP 1545 PG/ML (<450)
[2018-06-27] MEDS: methylPREDNISolone INJ 40 MG/1 ML VIAL (J2920) IV SCH ×3 (07:36→22:56)
[2018-06-27] MEDS: ATORVASTATIN 20 MG TAB PO SCH (08:09)
[2018-06-27] MEDS: METOPROLOL TART 25 MG TABLET PO SCH ×2 (08:10→20:28)
[2018-06-27] MEDS: PIPERACILLIN/TAZOBACTAM SOD 4.5 GM in D5W MINI-BAG PLUS 50 ML IV SCH ×3 (08:10→19:27)
[2018-06-27] MEDS: PANTOPRAZOLE 40MG INJ (PROTONIX) (C9113) IV SCH (08:11)
[2018-06-27] MEDS: ENOXAPARIN 40 MG/0.4 ML SYRINGE (J1650) SC SCH (08:11)
[2018-06-27 08:17] LABS: ABG BASE EXCESS 3.1 (-2.0-2.0); ABG HCO3 30.8 MEQ/L (22.0-26.0); ABG O2 SATURATION 98.4 % (95.0-99.0); ABG STANDARD HCO3 27.2 MEQ/L (22.0-26.0); ABG TOTAL CO2 32.7 MEQ/L (23.0-31.0); ABG pH (ARTERIAL) 7.313 UNITS (7.350-7.450)
[2018-06-27 08:19] LABS: ABG PARTIAL PRESSURE CO2 62.2 mmHg (35.0-45.0)
--- NOTE | 2018-06-27 08:19 | REP ---
Clinical: Status post intubation. Comparison: 06/24/2018. Findings: Right mainstem intubation is suggested and partial collapse with multifocal atelectasis and volume loss involving the left hemithorax is now appreciated. The right hemithorax appears relatively well aerated and clear. Impression: Right mainstem intubation with associated left-sided areas of atelectasis/partial collapse and volume loss. Note: A subsequent second image was obtained and in the endotracheal tube is now identified at the tony with moderately improved aeration to the left lung but continued evidence for scattered areas of atelectasis. Electronically Signed by Sy Gardner MD 06/27/2018 08:09 A
[2018-06-27] MEDS: CHLORHEXIDINE GLUCONATE 0.12 % 15ML UDC (PERIDEX ORAL RINSE) MT SCH ×2 (08:29→20:28)
[2018-06-27] MEDS: HumaLOG INSULIN (NovoLOG) PER UNIT SC SCH ×4 (08:29→23:28)
[2018-06-27] MEDS: IPRATROPIUM 0.5MG/ALBUTEROL 2.5MG INH SOL UD 3ML (DUONEB)(J7620) NEB SCH ×4 (08:35→20:14)
[2018-06-27] MEDS: fentaNYL 100 MCG/2 ML INJECTION (J3010) IV PRN ×4 (08:58→20:45)
[2018-06-27] MEDS: SYMBICORT 160/4.5MCG INHALER 6GM INH SCH ×2 (09:00→21:00)
--- NOTE | 2018-06-27 09:07 | RO ---
DATE OF PROCEDURE: 06/27/2018 INDICATION: Acute on chronic hypercarbic respiratory failure. ATTENDING PHYSICIAN: Jayne Rizo MD PREPROCEDURE DIAGNOSIS: Respiratory failure. POSTPROCEDURE DIAGNOSIS: Respiratory failure. PROCEDURE: Endotracheal intubation. CONSENT: Procedure was emergent. Due to the emergent nature consent was implied. The patient had previous documentation of a DNR, but trial of intubation. Family was notified and in agreement with the plan. PROCEDURE SUMMARY: A time-out was performed. My hands were washed immediately prior to the procedure. The patient was placed on a cardiac rehabilitation program director including continuous pulse oximetry. Rapid sequence intubation was conducted. The patient received 20 mg of etomidate for induction and 50 mg of succinylcholine for adequate paralysis. Using a GlideScope with a size 7.5 endotracheal tube with stylet, the patient was intubated on the first attempt. The stylet was removed and the cuff was inflated. Appropriate endotracheal tube position was confirmed by direct visualization of vocal cord passage, fogging of tube, and CO2 carbon indicator. The tube was secured initially at 23 cm at the lips. There were decreased breath sounds on the left side and so the tube was repositioned and pulled back to approximately 19 cm at the lip. Postprocedure chest x-ray showed the ET tube approximately 1 cm above the tony.
[2018-06-27] MEDS ORDERED: ISOVUE-370 76% 100ML VIAL (Q9967) As Ordered ONE (10:09)
--- NOTE | 2018-06-27 10:51 | REP ---
Clinical: Acute chest pain. Technique: Axial contrast enhanced images from the thoracic inlet to the upper abdomen using 100 ml Isovue 370 intravenous contrast material with coronal and sagittal re-formations. Findings: Endotracheal tube is identified with its tip at the tony and requires repositioning. A nasogastric tube is identified extending into the stomach. Satisfactory enhancement of the pulmonary vasculature is achieved and no filling defects are identified to suggest pulmonary embolus. Scattered alveolar and interstitial infiltrates identified within the left upper lobe, left lower lobe, right middle lobe and right lower lobe as well as small areas of atelectasis/consolidation in the bilateral lung bases. Mild reactive adenopathy is suggested. Atherosclerotic changes to the thoracic aorta and coronary arteries noted without aortic aneurysm or dissection. No cardiomegaly or pericardial effusion. Impression: 1. Endotracheal tube at the tony requires repositioning. 2. Multifocal pneumonia (left greater than right). 3. No evidence for pulmonary embolus. Electronically Signed by Sy Gardner MD 06/27/2018 10:42 A
--- NOTE | 2018-06-27 12:57 | HPE ---
DATE OF ADMISSION: 06/27/2018 CHIEF COMPLAINT: Shortness of breath. HISTORY OF PRESENT ILLNESS: History was obtained from the chart and collaterals as patient was unable to provide a history on my examination. Patient is a 77-year-old female with a past medical history of chronic obstructive pulmonary disease (COPD) on nasal cannula oxygen supplementation 2 liters per minute at night mostly, history of depression, hyperlipidemia, diabetes, who presented as a transfer from [facility] with increasing shortness of breath and altered mental status. Reportedly, patient's shortness of breath had started about a week ago and had been gradually worsening with any exertion. She had also reported increasing cough and sputum production. Had denied any fever or chills. No chest pains or increased lower extremity edema. In the ED at [facility] patient was reportedly in a narrow complex supraventricular tachycardia (SVT) with heart rate in the 190s with a right bundle branch block. She was given 6 mg of adenosine and then 12 mg of adenosine with no improvement and was then placed on a Cardiezem drip. Upon arrival at [facility] her heart rate was in the 120s. She was hypoxic on 4 to 5 liters nasal cannula oxygen, saturating in the 80s. Patient had an ABG done here which showed acute on chronic hypercarbic respiratory failure. She was placed on BiPAP in the ICU. Patient was seen and examined early this morning while on BIPAP PAST MEDICAL HISTORY: 1. Gastroesophageal reflux disease (GERD). 2. COPD with chronic hypoxemic respiratory failure, on nasal cannula oxygen supplementation 2 liters per minute at night. 3. Depression and anxiety. 4. Hypolipidemia. 5. Diabetes. 6. Hyperlipidemia. 7. History of paroxysmal atrial fibrillation. Not on anticoagulation. PAST SURGICAL HISTORY: Hysterectomy. Cholecystectomy. ALLERGIES: No known drug allergies. FAMILY HISTORY: Unable to be obtained as patient is unable to provide history. SOCIAL HISTORY: Patient is a former smoker. Quit in 2001. HOME MEDICATIONS: - albuterol - vitamin C - atorvastatin - Symbicort - buspirone - vitamin D - citalopram - loratadine - metoprolol 25 mg twice a day - omeprazole - Daliresp - Spiriva PHYSICAL EXAMINATION: Temperature 98.4, pulse 128, respirations 26, blood pressure 148/63, oxygen 98% on 70% on BiPAP. GENERAL: The patient is obese. Is lying in bed. Appears to be in some mild respiratory distress. Is using accessory muscles for respiration. She is lethargic. Is not responding to voice or answering questions. HEENT: She is normocephalic, atraumatic. Patient has a very short neck with limited mobility. Unable to palpate her thyroid or any cervical adenopathy due to her body habitus. Mucous membranes are moist. CARDIOVASCULAR: She is tachycardic. Normal S1, S2. Unable to appreciate any murmurs. PULMONARY: Patient has some diminished breath sounds bilaterally with wheezing and occasional crackles. ABDOMEN: Obese. Soft, nontender. Nondistended. Positive bowel sounds. LOWER EXTREMITIES: There is trace to +1 pitting edema in the bilateral lower extremities. LABS: WBC 36.3, hemoglobin 13.1, platelets 335. Chemistry: Sodium 139, potassium 4.0, chloride 100, bicarbonate 35, BUN 24, creatinine 0.86, glucose is 238. Total bilirubin is 1.3, alkaline phosphatase 137, AST, ALT normal. Initial troponins were negative. Magnesium was 2.0. Her BMP was 1545. ABG initially was 7.129. PCO2 121.9, pO2 of 150.6. Repeat ABG after being on BiPAP for an hour was pH 7.094. PCO2 of 121.1 and a pO2 of 158.2. Microbiology: Her respiratory panel was positive for human rhinovirus/enterovirus. Patient did not have any chest x-ray on admission. ASSESSMENT AND PLAN: Patient is a 77-year-old female with a past medical history of COPD, chronic hypoxemic respiratory failure on nasal cannula oxygen supplementation, diabetes, hyperlipidemia, depression, anxiety, gastroesophageal reflux disease (GERD), paroxysmal atrial fibrillation who presented initially to [facility] with increasing shortness of breath and cough. The patient was hypoxemic there, was placed on nasal cannula oxygen initially. She was also noted to be tachycardic, was given adenosine times two with no response. She was transferred to [facility] for further management. She had an ABG drawn here which showed acute on chronic hypercarbic and hypoxemic respiratory failure. She was placed on BiPAP however, her repeat ABG did not show improvement and showed worsening acidosis. Therefore, the decision was made to intubate the patient. She has a previously documented DNR but she was agreeable for a trial of intubation. Therefore, patient was intubated with a 7.5 ET tube and placed on the ventilator. Post intubation she was noted to have copious thick yellow mucus with some blood tinged sputum as well being suctioned from her ET tube. The patient was also noted to have a leukocytosis on admission. Was afebrile, however, there was a report of a fever at [facility]. She was also tachycardic. Her blood pressures have remained stable. She was given approximately 1000 mL fluid bolus however, further fluids were held given an increased BNP and some evidence of lower extremity edema and concern for possible fluid overload contributing to some of her symptoms. Patient likely with sepsis secondary to pneumonia and an acute COPD exacerbation causing her acute on chronic hypercarbic and hypoxemic respiratory failure. NEUROLOGICAL: Patient is intubated and sedated. She has history of depression and anxiety. Continue with propofol for sedation and fentanyl as needed for agitation and pain. Titrate her sedation for a [place] of 4 to 5. Daily sedation vacation. Will hold her psychiatric medications at this time. CARDIAC: Patient has a history of paroxysmal atrial fibrillation. Has not been on anticoagulation. She was reportedly with a narrow complex SVT at [facility]. EKG here shows sinus tachycardia with a right bundle branch block Her tachycardia has improved post intubation. Will continue with metoprolol at 25 mg twice a day and hold for hypotension or bradycardia. Patient did have elevated BNP. Her troponins were negative. Will get an echo to evaluate. Will hold off on diuresis given sepsis. Her lactic acid was 1.1. Given concern for possible heart failure, will hold off on additional IV fluids and monitor her ins and outs. Continue with atorvastatin. PULMONARY: History of COPD with chronic hypoxemic respiratory failure on nasal cannula supplementation at night. Presented with increasing cough and shortness of breath, was found to have acute on chronic hypercarbic and hypoxemic respiratory failure requiring intubation. Has had a previous history of intubation for pneumonia in the past. Patient with acute COPD exacerbation likely secondary to a pneumonia. Her viral panel is positive for human rhinovirus and enterovirus. Patient viral URI as well as a possible superimposed bacterial pneumonia. Continue with broad spectrum antibiotics with vancomycin and Zosyn. Will followup procalcitonin and if it is not elevated, will de-escalate her antibiotics. Will check sputum culture. She did have very thick copious sputum from the endotracheal tube. CT angiogram was ordered given her hypoxemia. Will followup the results of the CT chest. Continue patient on the ventilator with pressure regulated volume control (PRVC) with settings of 350/23/50/5. Will continue to wean down FiO2 as tolerated. Suspect patient's chronic hypercarbic respiratory failure is in the setting of COPD. Possibly also some restrictive lung disease, given her body habitus. Continue with vent bundle with head of bed elevation and chlorhexidine mouth wash. Continue with DuoNebs around the clock and continue with Solu-Medrol 40 mg q8h Daily ABGs while intubated and daily chest x-rays. ENDOCRINE: History of diabetes. Glucose on chemistry was elevated. Will check fingerstick glucose every 6 with insulin sliding scale coverage and then depending on her insulin requirements will start her on long acting medications. GI: History of GERD. Will start Protonix for GI prophylaxis while intubated. Will keep nothing by mouth (npo) for now. OG tube is in place to low intermittent suction. Can likely start tube feeds tomorrow. Patient had some mildly elevated bilirubin and alkaline phosphatase. AST and ALT were normal. Will repeat liver function tests and continue to monitor. RENAL: Patient had mildly elevated BUN. Creatinine was normal. Will continue to monitor her renal function. Will monitor electrolytes and replete as needed. Noe placed. Will monitor urine output. DVT prophylaxis with Lovenox. CODE STATUS: DO NOT RESUSCITATE (DNR) WITH A TRIAL OF INTUBATION. TOTAL CRITICAL CARE TIME SPENT NOT INCLUDING ANY PROCEDURES: Approximately 1 hour and 55 minutes. MTDD
[2018-06-27] MEDS: VANCOMYCIN HCL 1,000 MG, VIAL MATE ADAPTER 1 EACH in D5W 250 ML IV SCH (17:39)
[2018-06-28] VITALS (25 sets, daily range): BP systolic 123–153; BP diastolic 59–87; O2SAT 94–96
[2018-06-28] MEDS: IPRATROPIUM 0.5MG/ALBUTEROL 2.5MG INH SOL UD 3ML (DUONEB)(J7620) NEB SCH ×6 (00:21→20:00)
[2018-06-28] MEDS: PIPERACILLIN/TAZOBACTAM SOD 4.5 GM in D5W MINI-BAG PLUS 50 ML IV SCH ×4 (01:45→19:37)
[2018-06-28] MEDS: fentaNYL 100 MCG/2 ML INJECTION (J3010) IV PRN ×2 (04:04→16:15)
[2018-06-28] MEDS: PROPOFOL 1,000 MG in APPROPRIATE DILUENT 1 EA IV SCH ×4 (04:04→22:19)
[2018-06-28 05:34] LABS: BASO % 0.1 % (0.0-1.0); HEMATOCRIT 37.2 % (36.0-47.0); HEMOGLOBIN 11.5 g/dl (12.0-15.5); LYMPH # 0.3 10^3/uL (1.5-4.5); MEAN CORPUSCULAR HGB CONC 30.9 g/dl (32.0-36.5); MEAN CORPUSCULAR VOLUME 87.3 fl (80.0-96.0); MONO # 0.5 10^3/uL (0.0-0.8); MONO % 2.9 % (0.0-5.0); NEUTROPHILS % 94.2 % (36.0-66.0); PLATELET COUNT, AUTOMATED 270 10^3/uL (150-450); RED BLOOD COUNT 4.26 10^6/uL (4.00-5.40)
[2018-06-28] MEDS ORDERED: METOPROLOL TART 50 MG TAB As Ordered ONE (05:35)
[2018-06-28] MEDS: METOPROLOL TART 50 MG TAB PO SCH ×2 (05:36→20:09)
[2018-06-28 05:56] LABS: ABG BASE EXCESS 11.3 (-2.0-2.0); ABG HCO3 35.8 MEQ/L (22.0-26.0); ABG O2 SATURATION 99.4 % (95.0-99.0); ABG PARTIAL PRESSURE CO2 46.5 mmHg (35.0-45.0); ABG PARTIAL PRESSURE O2 169.5 mmHg (75.0-100.0); ABG STANDARD HCO3 35.1 MEQ/L (22.0-26.0); ABG TOTAL CO2 37.2 MEQ/L (23.0-31.0); ABG pH (ARTERIAL) 7.504 UNITS (7.350-7.450)
[2018-06-28] MEDS: methylPREDNISolone INJ 40 MG/1 ML VIAL (J2920) IV SCH ×3 (06:17→22:46)
[2018-06-28] MEDS: HumaLOG INSULIN (NovoLOG) PER UNIT SC SCH ×4 (06:18→23:30)
[2018-06-28 06:23] LABS: ALBUMIN 2.4 GM/DL (3.2-5.2); BILIRUBIN,DIRECT 0.7 MG/DL (0.0-0.2); BILIRUBIN,TOTAL 1.3 MG/DL (0.2-1.0); CALCIUM LEVEL 8.8 MG/DL (8.8-10.2); CREATININE FOR GFR 1.04 MG/DL (0.55-1.30); GLOMERULAR FILTRATION RATE 54.8 (>39); MAGNESIUM LEVEL 2.1 MG/DL (1.8-2.4); PHOSPHORUS LEVEL 2.4 MG/DL (2.5-4.9); POTASSIUM SERUM 2.9 MEQ/L (3.5-5.1); TOTAL PROTEIN 6.2 GM/DL (6.4-8.2)
[2018-06-28] MEDS ORDERED: MAG SULF 1GM/100ML (MAG RUN) 1 GM in APPROPRIATE DILUENT 1 EA IV SCH (06:30)
[2018-06-28] MEDS ORDERED: MAG SULF 1GM/100ML (MAG RUN) 1 GM in APPROPRIATE DILUENT 1 EA IV ONE (06:30)
[2018-06-28] MEDS ORDERED: POTASSIUM CHLORIDE 10% LIQ 20 MEQ/15 ML UDC PO ONE (06:30)
[2018-06-28] MEDS ORDERED: NS 1,000 ML IV SCH (06:45)
[2018-06-28] MEDS: SYMBICORT 160/4.5MCG INHALER 6GM INH SCH ×2 (07:26→19:59)
[2018-06-28] MEDS: KCL 10MEQ/100ML SWI (KRUN) 10 MEQ in APPROPRIATE DILUENT 1 EA IV SCH ×3 (07:53→10:00)
[2018-06-28] MEDS: ATORVASTATIN 20 MG TAB PO SCH (08:33)
[2018-06-28] MEDS: NEUTRA-PHOS 1.5 GM PACKET PO SCH ×2 (08:33→20:08)
[2018-06-28] MEDS: PANTOPRAZOLE 40MG INJ (PROTONIX) (C9113) IV SCH (08:35)
[2018-06-28] MEDS: ENOXAPARIN 40 MG/0.4 ML SYRINGE (J1650) SC SCH (08:36)
[2018-06-28] MEDS: CHLORHEXIDINE GLUCONATE 0.12 % 15ML UDC (PERIDEX ORAL RINSE) MT SCH ×2 (08:46→20:08)
[2018-06-28] MEDS: ACETAMINOPHEN 325 MG/10.15 ML UDC GT PRN (09:08)
--- NOTE | 2018-06-28 10:02 | CCN ---
DATE: 06/28/2018 The patient was seen and examined this morning during bedside rounds. Overnight the patient had been stable. However, early this morning, she was noted to have frequent PVCs as well as tachycardia with heart rate going into the 130s periodically and back into 113. The patient's EKG overnight appeared to be in sinus tachycardia with frequent PVCs and previously noted right bundle-branch block. The patient was found on labs to be hypokalemic. She was given potassium supplementation. She was also increased on her metoprolol from 25 to 50 mg by mouth with improvement in her tachycardia. Her blood pressure had otherwise remained stable during this. The patient is intubated still and sedated. She is responsive to painful stimuli currently. PHYSICAL EXAMINATION: T-max 100.1, pulse 95, respirations 18, blood pressure 142/71, O2 94% on 35% FiO2. General: Patient is intubated and sedated. Is responsive to painful stimuli currently. Is not following commands. HEENT: She is normocephalic, atraumatic. Has a very short neck with limited mobility. Unable to palpate her thyroid or any cervical adenopathy due to her body habitus. Mucous membranes are moist. Cardiovascular: Normal S1, S2. Unable to appreciate any murmurs. Pulmonary: The patient has diminished breath sounds bilaterally with occasional wheezes and crackles at the bases. Abdomen: She is soft, nontender, nondistended. Positive bowel sounds. Lower extremity: There is trace lower extremity edema in the bilateral lower extremities. LABORATORY DATA: WBC 16.0, hemoglobin 11.5, platelets 270. Chemistry: Sodium 141, potassium 2.9, chloride 98, bicarb 34, BUN 33, creatinine 1.04, glucose is 163, phos is 2.4, magnesium is 2.1, bilirubin is 1.3. ABG: pH 7.504, pCO2 of 46.5, pO2 of 169.5. Chest x-ray this morning showed improvement in the opacities on the left side with some increased interstitial markings bilaterally. ET tube is in place approximately 1 cm above the tony. IMAGING: CTA from 06/27/2018 showed ET tube right above the tony. There is emphysematous changes bilaterally in the lungs. There is some patchy consolidation mildly in the right upper lobe and more dense consolidation in the right lower lobe. There are more consolidations noted on the left lung greater than the right with some scattered opacities in the left upper lobe and some denser consolidation and atelectasis in the left lower lobe. There is no evidence of any acute pulmonary embolus (PE). No significant pleural effusion. ASSESSMENT/PLAN: The patient is a 77-year-old with history of chronic obstructive pulmonary disease (COPD), chronic hypoxemic respiratory failure on nasal cannula oxygen supplementation, diabetes, hyperlipidemia, depression, anxiety, gastroesophageal reflux disease, paroxysmal atrial fibrillation who presented initially to [facility] with increasing shortness breath and cough. The patient was transferred to [facility] given her hypoxemic respiratory failure and for possible BiPAP. The patient was found to have acute on chronic hypercarbic and hypoxemic respiratory failure. She was trialed on BiPAP in the ICU, however, her repeat ABG did not show improvement and she was therefore intubated. The patient was noted to have leukocytosis as well as a reported fever. She did have copious thick yellow secretions from her ET tube and her chest x-ray and CT shows that it is likely multifocal pneumonia. Patient likely with sepsis secondary to pneumonia and acute on chronic hypercarbic and hypoxemic respiratory failure secondary to pneumonia with an acute COPD exacerbation. Neuro: The patient is intubated and sedated. Continue with propofol for sedation and fentanyl as needed for pain and agitation. Titrate sedation for a Comstock goal of 2-3. Will perform a sedation vacation this morning and daily to assess her mental status. Continue to hold her home psychiatric medications, she has history of depression and anxiety. Cardiac: The patient has a history of paroxysmal atrial fibrillation. Her EKG here shows sinus tachycardia with a right bundle branch block. The patient's tachycardia had initially improved post intubation. However overnight she was noted to have increased tachycardia and PVCs. She did have hypokalemia which likely is contributing to her PVCs. Her metoprolol was increased to 50 mg twice daily with improvement in the tachycardia. Will continue to monitor her electrolytes and replete as needed The patient was noted to have a significantly elevated BNP on admission. Her cardiac enzymes were negative. Will get an echo to further evaluate. Suspect she may have a component of pulmonary hypertension secondary to her severe lung disease as well as possible diastolic dysfunction. Her chest x-ray does show some increased interstitial markings today compared to previously. Will hold off for diuresis for now given her sepsis. However, she will likely require some diuresis prior to extubation to optimize her respiratory status. Continue with atorvastatin. Pulmonary: History of chronic obstructive pulmonary disease (COPD) with chronic hypoxemic respiratory failure on nasal cannula oxygen supplementation. She likely also has a component of chronic hypercarbic respiratory failure in the setting of COPD and possibly some restrictive lung disease given her body habitus. She presented with acute on chronic hypercarbic and hypoxemic respiratory failure in the setting of pneumonia and acute COPD exacerbation. Her viral panel was positive for human rhinovirus and enterovirus, however, suspect she has a superimposed bacterial pneumonia as well. The patient did have low grade temperature still today, however her WBC is trending down. Therefore will continue with vancomycin and Zosyn and follow up the results of her cultures. Will followup procalcitonin. Will give Tylenol as needed for fever. The patient's ABG showed respiratory alkalosis. Will decrease her respiratory rate to 16. Her ABG was done with a decreased respiratory rate of 20 from 23. Therefore, she will be on PRVC load on the mechanical ventilator with the setting of 350/16/35 and 5. Continue with daily ABGs while intubated and daily chest x-rays. Continue Solu-Medrol 40 mg every 8 and DuoNebs. Will likely taper down the Solu-Medrol tomorrow 40 every 12. Endocrine: History of diabetes. The patient has been on insulin sliding scale coverage. Will start her on long-acting insulin with detemir 10 units daily at bedtime and continue with fingerstick glucose every 6 and sliding scale coverage as needed. GI: History of gastroesophageal reflux disease (GERD). Continue with Protonix for gastroesophageal reflux disease and GI prophylaxis. The patient is still nothing by mouth today. Will start tube feeds tomorrow morning at trophic rate. The patient continues to have mildly elevated bilirubin with normal LFTs. Will continue to monitor. Renal. The patient's BUN and creatinine are slightly elevated. She is net positive on ins and outs. Given her increased BMP and evidence of some pulmonary vascular congestion, will hold off on additional IV fluids at this time. Will continue to monitor her electrolytes and replete as needed. She was noted to be hypokalemic and hypophosphatemic. Was given supplementation. Continued to monitor ins and outs via Noe. Deep venous thrombosis (DVT) prophylaxis, Lovenox. Code status: DO NOT RESUSCITATE with a trial of intubation. Healthcare proxy is her sister, Jesika Springer. Total critical care time spent not including any procedures: Approximately of 45 minutes. JASPERD
--- NOTE | 2018-06-28 10:42 | REP ---
PORTABLE CHEST: AP portable view of the chest is performed and compared to prior studies, most recently 06/27/2018. Endotracheal tube is seen with the tip about 1 cm above the tony. A nasogastric tube is seen. The sideport is in the distal esophagus about 4 cm above the gastroesophageal junction. There is mild cardiomegaly. There is persistent vascular congestion and bilateral interstitial infiltrates. There is calcification of the thoracic aorta. Patient's chin overlies the left lung apex. Electronically Signed by Agustin Mcclelland MD 06/28/2018 06:17 P
[2018-06-28] MEDS: VANCOMYCIN HCL 1,000 MG, VIAL MATE ADAPTER 1 EACH in D5W 250 ML IV SCH (11:57)
--- NOTE | 2018-06-28 12:44 | PHACANCOPD ---
PHARMACY VANCOMYCIN DOSING Pt Demographics Demographics Patient Age:77 , Weight:75.500 , Gender: female Adjusted Body Weight Date: 06/27/18, Adjusted Body Weight: Kg Events Past 24 Hours Events Past 24 Hours: YES: Fever; NO: Dialysis, Diuretic Therapy, Change in CrCl, Elevation in WBC, Pending Diagnostics, Pending Procedures, Other Vancomycin Vancomycin indication: SEPSIS Vancomycin Target Ranges: 15-20 mcg/ml Vancomycin Load Y/N: No Load Dose Date Time Vancomycin Load Dose: Date: Time: Vancomycin Dose Date: 06/27/18. Current Vancomycin Dose: [1GM Q18H] Intermittent Dosing?: No Labs Labs Item Value Date Time White Blood Count 36.3 10^3/uL *H 06/27/18455 White Blood Count 16.0 10^3/uL H 06/28/18 0432 Procalcitonin 0.30 NG/ML 06/27/18455 Creatinine 0.86 MG/DL 06/27/18455 Creatinine 1.04 MG/DL 06/28/18 043 Lactic Acid Level 1.1 MMOL/L 06/27/18 045 Micro Microbiology 06/27/18 Blood Culture - Preliminary, Resulted No growth after 24 hours . All specim... 06/27/18 Blood Culture - Preliminary, Resulted No growth after 24 hours . All specim... 06/27/18 Gram Stain - Final, Resulted 06/27/18 Sputum Culture, Resulted Pending 06/27/18 Respiratory Virus Panel (PCR) ([facility]) - Final, Complete Human Rhinovirus/Enterovirus 06/27/18 Urine Culture - Final, Complete Creatinine Clearance Date:06/27/18. Creatinine Clearance: [65.8].CALCULATED Pending Labs Vancomycin trough due 06/28@1100 Assessment and Plan Maintaining Current Dose?: Yes Reason for dose change: No Dose Change Pharmacist Note Pharmacist Note 06/28: Patient's trough this morning was 10 after 2 doses. Her SCR has increased from 0.86 to 1.04. Patient's WBC has decreased but still remains elevated, patient is febrile, on ventilator and procalcitonin came back 0.3, indicating there is a bacterial component to her infection. She has no history of MRSA or Vancomycin use at our facility. We will continue her on Vancomycin 1gm q18h and monitor her renal function closely. We will continue to monitor and make adjustments as necessary. Date: 06/27/18. Pharmacist note:77YOF admitted w/sepsis, SCR=0.86,CRCL=65.8(calculated),NKDA, Receiving PIP/TAZO 4.5 grams IV Q6H plus Vancomycin (trough goal 15-20)per Pharmacy consult.Vancomycin 1 gm administered 06/27@0600-Will Begin 1 gram Q18H regimen 06/27@1800.First trough is to be drawn 06/28@1100-Will continue to follow and will adjust dose/schedule as needed [facility] Jun 28, 2018 12:44
[2018-06-28 17:36] LABS: CALCIUM LEVEL 8.7 MG/DL (8.8-10.2); CREATININE FOR GFR 1.13 MG/DL (0.55-1.30); GLOMERULAR FILTRATION RATE 49.8 (>39)
[2018-06-28] MEDS: LEVEMIR (INSULIN DETEMIR) 1 UNITS/0.01ML SC SCH (20:53)
[2018-06-29] VITALS (26 sets, daily range): BP systolic 126–166; BP diastolic 60–74; O2SAT 93–95
[2018-06-29] MEDS: IPRATROPIUM 0.5MG/ALBUTEROL 2.5MG INH SOL UD 3ML (DUONEB)(J7620) NEB SCH ×7 (00:26→23:59)
[2018-06-29] MEDS: PIPERACILLIN/TAZOBACTAM SOD 4.5 GM in D5W MINI-BAG PLUS 50 ML IV SCH ×4 (01:36→19:46)
[2018-06-29 04:59] LABS: HEMATOCRIT 38.5 % (36.0-47.0); HEMOGLOBIN 11.8 g/dl (12.0-15.5); MEAN CORPUSCULAR HEMOGLOBIN 27.1 pg (27.0-33.0); MEAN CORPUSCULAR HGB CONC 30.6 g/dl (32.0-36.5); MEAN CORPUSCULAR VOLUME 88.5 fl (80.0-96.0); PLATELET COUNT, AUTOMATED 270 10^3/uL (150-450); RED BLOOD COUNT 4.35 10^6/uL (4.00-5.40); WHITE BLOOD COUNT 15.6 10^3/uL (4.0-10.0)
[2018-06-29] MEDS: VANCOMYCIN HCL 1,000 MG, VIAL MATE ADAPTER 1 EACH in D5W 250 ML IV SCH (05:12)
[2018-06-29] MEDS: PROPOFOL 1,000 MG in APPROPRIATE DILUENT 1 EA IV SCH ×5 (05:23→23:37)
[2018-06-29 05:24] LABS: ABG BASE EXCESS 11.7 (-2.0-2.0); ABG HCO3 37.6 MEQ/L (22.0-26.0); ABG O2 SATURATION 94.1 % (95.0-99.0); ABG PARTIAL PRESSURE CO2 54.9 mmHg (35.0-45.0); ABG PARTIAL PRESSURE O2 70.5 mmHg (75.0-100.0); ABG STANDARD HCO3 35.4 MEQ/L (22.0-26.0); ABG TOTAL CO2 39.3 MEQ/L (23.0-31.0); ABG pH (ARTERIAL) 7.454 UNITS (7.350-7.450)
[2018-06-29 05:26] LABS: BLOOD UREA NITROGEN 33 MG/DL (7-18); CALCIUM LEVEL 8.5 MG/DL (8.8-10.2); CARBON DIOXIDE LEVEL 35 MEQ/L (21-32); CHLORIDE LEVEL 101 MEQ/L (98-107); CREATININE FOR GFR 0.91 MG/DL (0.55-1.30); GLOMERULAR FILTRATION RATE > 60.0 (>39); GLUCOSE, FASTING 150 MG/DL (70-100); MAGNESIUM LEVEL 2.6 MG/DL (1.8-2.4); SODIUM LEVEL 142 MEQ/L (136-145)
[2018-06-29] MEDS: HumaLOG INSULIN (NovoLOG) PER UNIT SC SCH ×4 (06:00→23:52)
[2018-06-29] MEDS: methylPREDNISolone INJ 40 MG/1 ML VIAL (J2920) IV SCH ×2 (06:06→18:05)
--- NOTE | 2018-06-29 07:52 | REP ---
Portable chest, 06:46 a.m., single AP semi upright view: Comparison is for a 2019. The endotracheal tube remains in satisfactory position with the tip at the level of the aortic arch, above the tony. The nasogastric tube and sideport is now identified in the abdominal left upper quadrant. Diffuse bilateral interstitial coarsening is again identified, slightly improved. There are no focal infiltrates. No pleural effusions. Cardiac size is normal. The patients head and chin obscure the lung apices. Electronically Signed by Agustin Weiss MD 06/29/2018 07:43 A
[2018-06-29] MEDS: PANTOPRAZOLE 40MG INJ (PROTONIX) (C9113) IV SCH (08:01)
[2018-06-29] MEDS: ENOXAPARIN 40 MG/0.4 ML SYRINGE (J1650) SC SCH (08:01)
[2018-06-29] MEDS: CHLORHEXIDINE GLUCONATE 0.12 % 15ML UDC (PERIDEX ORAL RINSE) MT SCH ×2 (08:01→21:40)
[2018-06-29] MEDS: ATORVASTATIN 20 MG TAB PO SCH (08:42)
[2018-06-29] MEDS: NEUTRA-PHOS 1.5 GM PACKET PO SCH ×2 (08:42→21:39)
[2018-06-29] MEDS: METOPROLOL TART 50 MG TAB PO SCH ×2 (08:42→21:40)
[2018-06-29] MEDS: SYMBICORT 160/4.5MCG INHALER 6GM INH SCH ×2 (09:00→21:00)
[2018-06-29] MEDS: ACETAMINOPHEN 325 MG/10.15 ML UDC GT PRN (11:44)
[2018-06-29] MEDS: LEVEMIR (INSULIN DETEMIR) 1 UNITS/0.01ML SC SCH (21:40)
--- NOTE | 2018-06-29 22:02 | ECHO ---
DATE OF PROCEDURE: 06/28/2018 Date of : 1940 Age: 77 Gender: Female. Height: 58 inches. Weight: 163 pounds. Body surface area: 1.67 meters squared. Inpatient: ICU, room 3206. REFERRING PHYSICIAN: Dr. Lidya Willard INDICATION: Dyspnea. MEASUREMENTS: 2D measurements: RV: 4.2 cm LV: 3.4 cm Septum: 1.0 cm Posterior wall: 1.0 cm Aortic root: 2.4 cm LA: 3.5 cm LVEF: 75% Doppler measurements: AV: 2.0 meters per second LVOT: 1.0 meters per second LVOT diameter: 1.8 cm Mean AV systolic gradient: 8 mmHg MV-E: 107, A: 124, EA ratio: 0.9 Early mitral deceleration time: 232 milliseconds E prime: 7, A prime: 11, E/E prime ratio: 15 Pulmonary capillary wedge pressure: 20 mmHg PV: 0.8 meters per second Pulmonary artery acceleration time: 88 milliseconds RVSP: 48 mmHg IVC: 2.3 cm COMMENTS: Normal sinus rhythm with right bundle branch block. Technically challenging study in light of the patient's respiratory problems and currently on a ventilator in the intensive care unit. Diagnostic useful information was still obtained. M-mode and two-dimensional echocardiography was performed with pulsed, continuous wave, color flow and tissue Doppler studies. Normal left ventricular size, wall thickness and hyperkinetic wall motion. Normal left atrial size but Doppler sign of a degree of impaired left ventricular (LV) diastolic function and mildly elevated estimated mean left atrial pressure. At least mildly dilated right heart chambers with normal wall motion but Doppler evidence of at least moderate pulmonary hypertension. Dilated inferior vena cava with absent respiratory collapse in keeping with right heart failure. Aortic valvular sclerosis without functional abnormality. Mild mitral annular thickening with no functional abnormality. Normal aortic root size. No apparent intracardiac mass or pericardial effusion. Comparing today's study with that of September 21, 2017, there did not appear to be a significant change.
--- NOTE | 2018-06-29 23:29 | PHACANCOPD ---
PHARMACY VANCOMYCIN DOSING Pt Demographics Demographics Patient Age:77 , Weight:75.000 , Gender: female Adjusted Body Weight Date: 06/27/18, Adjusted Body Weight: Kg Events Past 24 Hours Events Past 24 Hours: NO: Dialysis, Diuretic Therapy, Change in CrCl, Fever, Elevation in WBC, Pending Diagnostics, Pending Procedures, Other Vancomycin Vancomycin indication: SEPSIS Vancomycin Target Ranges: 15-20 mcg/ml Vancomycin Load Y/N: No Load Dose Date Time Vancomycin Load Dose: Date: Time: Vancomycin Dose Date: 06/29/18. Current Vancomycin Dose: [1GM Q12H] Intermittent Dosing?: No Labs Labs Item Value Date Time White Blood Count 15.6 10^3/uL H 06/29/18428 Creatinine 0.91 MG/DL 06/29/18428 Blood Urea Nitrogen 33 MG/DL H 06/29/18428 Glomerular Filtration Rate > 60.0 06/29/18428 Vancomycin Level Trough 12.1 UG/ML 06/29/18 225 Vital Signs Label Value Date Time Patient Temperature 98.0 degrees F 06/29/181999 Temperature Source Temporal 06/29/181999 Micro Microbiology 06/27/18 Blood Culture - Preliminary, Resulted No Growth after 48 hours. All Specime... 06/27/18 Blood Culture - Preliminary, Resulted No Growth after 48 hours. All Specime... 06/27/18 Gram Stain - Final, Complete 06/27/18 Sputum Culture - Final, Complete 06/27/18 Respiratory Virus Panel (PCR) ([facility]) - Final, Complete Human Rhinovirus/Enterovirus 06/27/18 Urine Culture - Final, Complete Creatinine Clearance Date:06/27/18. Creatinine Clearance: [65.8].CALCULATED Pending Labs Vancomycin trough due 06/30@1100 Assessment and Plan Maintaining Current Dose?: No Reason for dose change: Trough too low Pharmacist Note Pharmacist Note Date: 06/29/18. Pharmacist note:Trough of 12.1 is below target range. Dosing changed to 1000mg q12h. Will ocntinue to monitor and make adjustments as gena ojeda. [facility] Jun 29, 2018 23:29
--- NOTE | 2018-06-29 23:45 | CCN ---
DATE: 06/29/2018 CRITICAL CARE PROGRESS NOTE The patient was seen and examined this morning during bedside rounds. The patient has had no overnight events, no fevers. Her heart rate has remained controlled. The patient is sedated and intubated, is minimally responsive to painful stimuli. She will open up her eyes briefly with sternal rub. PHYSICAL EXAMINATION: Temperature 99.9, pulse 95, respirations 20, blood pressure 142/63, oxygen saturation (O2) 95-96% on 35% FiO2. Intake 1.3, output 1.3. General: Patient is intubated and sedated, is responsive to painful stimuli and opening eyes to voice and tactile stimuli. HEENT: She is normocephalic, atraumatic. Has a very short neck with limited mobility, unable to palpate her thyroid or any cervical adenopathy due to her body habitus. Mucous membranes are moist. Cardiovascular: Normal S1, S2. Unable to appreciate any murmurs. Pulmonary: Decreased breath sounds bilaterally with occasional crackles at the bases. Abdomen: Soft, nontender, nondistended. Positive bowel sounds. Lower extremities: There is no lower extremity edema noted in the bilateral lower extremities. LABORATORY DATA: WBC 15.6, hemoglobin 11.8, platelets 270. Chemistry: Sodium 142, potassium 4.0, chloride 101, bicarbonate 35, BUN 33, creatinine 0.91, glucose 150, magnesium 2.6. Microbiology: Sputum cultures were negative. ABG: pH 7.454, pCO2 of 54.9, pO2 of 70.5. Chest x-ray shows the endotracheal (ET) tube in position above the tony. There is bilateral coarse interstitial markings, which may be slightly improved compared to previous. ASSESSMENT AND PLAN: The patient is a 77-year-old female with a history of chronic obstructive pulmonary disease (COPD), chronic hypoxemic respiratory failure - on nasal cannula oxygen supplementation, diabetes, hyperlipidemia, depression, anxiety, gastroesophageal reflux disease (GERD), paroxysmal atrial fibrillation, who presented with increasing shortness of breath and cough. The patient was found to have acute on chronic hypercarbic and hypoxemic respiratory failure, was trialed on bilevel positive airway pressure (BiPAP). However, her repeat arterial blood gases (ABGs) did not show any improvement, and the patient was intubated. The patient had a CT which showed evidence of multifocal pneumonia, and she has sepsis secondary to her pneumonia as well as an acute COPD exacerbation contributing to her acute on chronic hypercarbic and hypoxemic respiratory failure. NEUROLOGIC: The patient is intubated and sedated. The patient had metabolic encephalopathy on admission secondary to her sepsis as well as from her hypercarbia. Continue with propofol and fentanyl as needed. Titrate for a Dariusz goal of 2 to 3. Continue daily sedation vacation to assess her mental status and for weaning trials. Holding her home psychiatric medications at this time. CARDIAC: History of paroxysmal atrial fibrillation. The patient is on a metoprolol and currently rate controlled. The patient had an elevated BNP on admission. Will hold off on diuresis for now given her sepsis. Will likely need to give some diuretics prior to extubation to optimize her respiratory status. Will followup echo Continue atorvastatin. PULMONARY: History of COPD with chronic hypoxemic respiratory failure - on nasal cannula oxygen supplementation. Patient likely also has some chronic hypercarbic respiratory failure due to her COPD and possibly restrictive lung disease from her body habitus. Patient with acute on chronic hypercarbic and hypoxemic respiratory failure in the setting of pneumonia and acute COPD exacerbation. Her viral panel was positive for Human rhinovirus and enterovirus; however, likely with a superimposed bacterial pneumonia as well. Continue with vancomycin and Zosyn for broad spectrum antibiotics. Will followup her procalcitonin The patient's ventilator was adjusted; she is on PRVC currently with 350/16/35 and 5 and her ABG shows improvement in her respiratory alkalosis Continue with daily ABGs while intubated and daily chest x-rays. Taper Solu-Medrol to 40 mg every 12 hours. The patient's sister, her healthcare proxy, Jesika, was updated on her status. The patient's sister had discussed that the patient had previously only wanted a trial of intubation and that she would not have wanted to remain intubated for a prolonged period of time. She had also previously been thinking of do not intubate (DNI); however, she did more recently change her mind. Therefore, the family has had some discussion about her previous wishes, and they feel that she would not want to remain on the ventilator for very much longer and would like a palliative extubation. She had also previously reported that she would not want noninvasive positive pressure ventilation as well. The family is planning to meet tomorrow and afterwards will discuss palliative extubation at that time. ENDOCRINE: History of diabetes. Will continue with detemir 10 units nightly and fingerstick glucose every 6 hours with sliding scale coverage as needed. GASTROINTESTINAL (GI): History of gastroesophageal reflux disease (GERD). Continue Protonix for GERD and GI prophylaxis. Was planning to start the patient on tube feeds; however, given the possibility of a palliative extubation tomorrow, will hold off on tube feeds for now. The patient's sister, her healthcare proxy, Jesika, had also previously reported that the patient would not have wanted any feeding tubes as well. Continue to monitor her liver function tests (LFTs). RENAL. The patient had mild acute kidney injury (DANIA). Creatinine is trending down. Will continue to monitor. Will replete electrolytes as needed. Continue to monitor her ins and outs via Noe. Deep vein thrombosis (DVT) prophylaxis: Lovenox. CODE STATUS: DO NOT RESUSCITATE (DNR) with a trial of intubation. Healthcare proxy is her sister, Jesika Springer Total critical care time spent not including any procedures: Approximately 45 minutes. JASPERD
[2018-06-30] VITALS (14 sets, daily range): BP systolic 117–161; BP diastolic 58–85; O2SAT 94
[2018-06-30] MEDS ORDERED: VANCOMYCIN HCL 1,000 MG, VIAL MATE ADAPTER 1 EACH in D5W 250 ML IV SCH ×3
[2018-06-30] MEDS: PIPERACILLIN/TAZOBACTAM SOD 4.5 GM in D5W MINI-BAG PLUS 50 ML IV SCH ×2 (02:15→08:48)
[2018-06-30] MEDS: IPRATROPIUM 0.5MG/ALBUTEROL 2.5MG INH SOL UD 3ML (DUONEB)(J7620) NEB SCH ×4 (04:35→15:09)
[2018-06-30 05:35] LABS: HEMATOCRIT 40.3 % (36.0-47.0); HEMOGLOBIN 12.3 g/dl (12.0-15.5); MEAN CORPUSCULAR HEMOGLOBIN 27.3 pg (27.0-33.0); MEAN CORPUSCULAR HGB CONC 30.5 g/dl (32.0-36.5); MEAN CORPUSCULAR VOLUME 89.6 fl (80.0-96.0); PLATELET COUNT, AUTOMATED 279 10^3/uL (150-450); WHITE BLOOD COUNT 15.4 10^3/uL (4.0-10.0)
[2018-06-30] MEDS: HumaLOG INSULIN (NovoLOG) PER UNIT SC SCH (05:58)
[2018-06-30] MEDS: methylPREDNISolone INJ 40 MG/1 ML VIAL (J2920) IV SCH (05:58)
[2018-06-30 06:01] LABS: BLOOD UREA NITROGEN 30 MG/DL (7-18); CALCIUM LEVEL 8.4 MG/DL (8.8-10.2); CARBON DIOXIDE LEVEL 34 MEQ/L (21-32); CHLORIDE LEVEL 101 MEQ/L (98-107); CREATININE FOR GFR 0.85 MG/DL (0.55-1.30); GLOMERULAR FILTRATION RATE > 60.0 (>39); GLUCOSE, FASTING 92 MG/DL (70-100); MAGNESIUM LEVEL 2.5 MG/DL (1.8-2.4); POTASSIUM SERUM 4.1 MEQ/L (3.5-5.1); SODIUM LEVEL 141 MEQ/L (136-145)
[2018-06-30] MEDS: PROPOFOL 1,000 MG in APPROPRIATE DILUENT 1 EA IV SCH (07:23)
--- NOTE | 2018-06-30 07:42 | REP ---
Portable chest, 06:55 a.m., single AP semi upright view: Comparison is for a 20 19. The patient is rotated. The nasogastric tube tip terminates satisfactorily in the abdominal left upper quadrant. The endotracheal tube tip is in satisfactory position at the level of the aortic arch. The diffuse interstitial coarsening has improved. Minor atelectasis is identified in the right costophrenic angle. Cardiac size is normal. Electronically Signed by Agustin Weiss MD 06/30/2018 07:33 A
[2018-06-30] MEDS: ATORVASTATIN 20 MG TAB PO SCH (08:48)
[2018-06-30] MEDS: PANTOPRAZOLE 40MG INJ (PROTONIX) (C9113) IV SCH (08:48)
[2018-06-30] MEDS: NEUTRA-PHOS 1.5 GM PACKET PO SCH (08:48)
[2018-06-30] MEDS: CHLORHEXIDINE GLUCONATE 0.12 % 15ML UDC (PERIDEX ORAL RINSE) MT SCH (08:48)
[2018-06-30] MEDS: METOPROLOL TART 50 MG TAB PO SCH (08:49)
[2018-06-30] MEDS: ENOXAPARIN 40 MG/0.4 ML SYRINGE (J1650) SC SCH (08:50)
[2018-06-30] MEDS: SYMBICORT 160/4.5MCG INHALER 6GM INH SCH (09:00)
[2018-06-30] MEDS ORDERED: FUROSEMIDE 20 MG/2 ML VIAL (J1940) IV ONE (10:00)
[2018-06-30] MEDS ORDERED: SCOPOLAMINE 1MG TRANSDERMAL PATCH TOP PRN (11:15)
[2018-06-30] MEDS ORDERED: ONDANSETRON 4MG/2ML VIAL (J2405) IV PRN (11:15)
[2018-06-30] MEDS ORDERED: LORazepam 2 MG/ML VIAL (J2060) IV PRN (11:15)
[2018-06-30] MEDS ORDERED: ACETAMINOPHEN 650 MG SUPP PR PRN (11:30)
[2018-06-30] MEDS: fentaNYL 100 MCG/2 ML INJECTION (J3010) IV PRN (11:58)
[2018-06-30] MEDS ORDERED: MORPHINE 1MG/ML IN 0.9% NACL 100ML IV BAG As Ordered ONE ×2 (12:03→13:32)
[2018-06-30] MEDS: MORPHINE SULF IN 0.9% NACL 100 MG in APPROPRIATE DILUENT 1 EA IV SCH ×4 (12:05→13:46)
--- NOTE | 2018-06-30 16:50 | HPEPDOC ---
General Date of Admission 06/30/2018 Chief Complaint The patient is a 77-year-old female who was transitioned to comfort measures this afternoon after failing to improve after intubation. History of Present Illness Patient is a 77-year-old female with a PMHx of Hx of Paroxysmal A. fib (not on anticoagulation), HTN, DM2, DLP, COPD on 2L O2, Depression / Anxiety and GERD who presented to [facility] as a transfer from [facility] with worsening shortness of breath and confusion. Patient was transferred from [facility] for a pulmonology consultation and cardiology consultation. Patient was found to have a narrow complex SVT with heart rate of 190 and right bundle-branch block. She received adenosine a few times and was transitioned to a Cardizem drip. Upon arrival to ICU, patient was placed on BiPAP and was eventually intubated on 06/27/2018 after she was found to have acute on chronic hypercarbic respiratory failure. While patient was in ICU, she was being treated for COPD exacerbation, possibly as a result of viral infection superimposed with a bacterial infection. Patients MOLST form had indicated DO NOT RESUSCITATE and trial of intubation. , However, patient had failed to improve and subsequently on 06/30/2018 patient was terminally extubated. Patient was converted to comfort measures at that time Patient was transferred from Dr. Rizo service to Hospitalist service. Patient was seen and examined at the bedside with family present. Currently patient is awake and alert, however, remains nonverbal and still confused. She is unable to answer any specific questions. Family has indicated that she does not appear to be in any distress. Home Medications Scheduled Albuterol Sulfate (Proair Hfa) 108 Mcg/Act Aer, 2 PUFF INH BID, (Reported) Ascorbic Acid (Vitamin C Gummies) 125 Mg Chw, 125 MG PO DAILY, (Reported) Atorvastatin Calcium (Atorvastatin Calcium) 20 Mg Tab, 20 MG PO DAILY, (Reported) Budesonide/Formoterol (Symbicort 160-4.5 Mcg Inhaler) 60 Puff/Inhaler Aers, 2 PUFF INH BID, (Reported) Buspirone HCl (Buspirone HCl) 10 Mg Tab, 10 MG PO BID, (Reported) Cholecalciferol (Vitamin D3) (Vitamin D3) 2,000 Unit Tab, 2,000 UNIT PO DAILY, (Reported) Citalopram Hydrobromide (Citalopram HBr) 20 Mg Tab, 20 MG PO DAILY, (Reported) Loratadine (Loratadine) 10 Mg Tab, 10 MG PO DAILY, (Reported) Metoprolol Tartrate (Metoprolol Tartrate) 25 Mg Tab, 25 MG PO BID, (Reported) Omeprazole (Omeprazole) 40 Mg Cap, 40 MG PO DAILY, (Reported) Prednisone (Prednisone) 20 Mg Tab, 20 MG PO DAILY, (Reported) Roflumilast (Daliresp) 500 Mcg Tab, 500 MCG PO DAILY, (Reported) Tiotropium [place] Monohydrate (Spiriva) 5 Inhalation/Inhaler Powd, 1 PUFF INH DAILY, (Reported) Allergies Coded Allergies: No Known Allergies (Unverified , 09/17/17) Past Medical History Medical History Paroxysmal A. fib (not on anticoagulation), HTN, DM2, DLP, COPD on 2L O2, Depression / Anxiety and GERD Surgical History Based on prior medical records; hysterectomy and cholecystectomy Family History - Unable to be obtained from patient Social History - Unable to be obtained from patient Review of Systems Other systems - Unable to be obtained from patient Vital Signs - Vitals: No longer take - General: Lying in bed, No acute distress, Awake / Alert - Full examination not completed as patient is comfort measures only Laboratory Data Labs 24H Laboratory Tests 2 06/29/18 17:41: Bedside Glucose (Misc Panel) 99 06/29/18 21:39: Bedside Glucose (Misc Panel) 139H 06/29/18 22:54: Vancomycin Level Trough 12.1 06/29/18 23:48: Bedside Glucose (Misc Panel) 117H 06/30/18 04:57: Nucleated Red Blood Cells % (auto) 0.0, Anion Gap 6L, Glomerular Filtration Rate > 60.0, Blood Urea Nitrogen 30H, Creatinine 0.85, Sodium Level 141, Potassium Level 4.1, Chloride Level 101, Carbon Dioxide Level 34H, Calcium Level 8.4L, Magnesium Level 2.5H 06/30/18 05:57: Bedside Glucose (Misc Panel) 85 06/30/18 10:45: Vancomycin Level Trough 16.8 CBC/BMP Laboratory Tests 06/30/18 04:57 Red Blood Count 4.50, Mean Corpuscular Volume 89.6, Mean Corpuscular Hemoglobin 27.3, Mean Corpuscular Hemoglobin Concent 30.5 L, Red Cell Distribution Width 14.6 H, Calcium Level 8.4 L Microbiology Microbiology 06/27/18 Blood Culture - Preliminary, Resulted No Growth after 72 hours. All specime... 06/27/18 Blood Culture - Preliminary, Resulted No Growth after 72 hours. All specime... 06/27/18 Gram Stain - Final, Complete 06/27/18 Sputum Culture - Final, Complete 06/27/18 Respiratory Virus Panel (PCR) ([facility]) - Final, Complete Human Rhinovirus/Enterovirus 06/27/18 Urine Culture - Final, Complete Assessment/Plan Acute on Chronic hypercarbic and hypoxic respiratory failure Acute COPD exacerbation Possible bacterial pneumonia; coverage for gram negative and MRSA Leukocytosis Paroxysmal A. fib; with recent history of RVR HTN IDDM2 DLP COPD on 2L O2 Depression Anxiety GERD DVT prophylaxis Plan / VTE VTE Prophylaxis Ordered?: No (Comfort measures only ) Plan Plan - MOLST form has been updated today by Dr. Rizo and healthcare proxy, Jesika Springer - Will continue the patient with comfort measures medications only - Nonessential medications have a been discontinued - Continue with morphine, Ativan and scopolamine as needed for comfort Advanced Directives: MOLST Form is available, Do Not Resuscitate (DNR), Do Not Intubate (DNI), Comfort Care Measures, Health Care Proxy (HCP) (Jesika Springer) JJ SWANSON MD Jun 30, 2018 16:50
--- NOTE | 2018-07-01 07:07 | CCN ---
DATE OF SERVICE: 06/30/2018 The patient was seen and examined on the morning during bedside rounds on 06/30/2018. She had no events overnight. She is intubated and sedated but able to open eyes. Does not appear to be following commands currently. She has had no fevers or chills overnight. PHYSICAL EXAMINATION: Temperature 98.9, pulse 77, respirations 16, blood pressure 147/75, O2 sat 94% on 35% FiO2. General: Patient is intubated and sedated. Is not in distress. She is responsive to painful stimuli and does open her eyes to voice. HEENT: Normocephalic, atraumatic. The patient has a thick short neck. Unable to palpate adenopathy or thyroid due to her neck habitus. Pupils are reactive. Mucous membranes are moist. Cardiovascular: Regular rate and rhythm. Normal S1, S2. Unable to appreciate any murmurs. Pulmonary: Decreased breath sounds bilaterally. Coarse ventilated breath sounds. Occasional crackles at the bases. Abdomen is soft, nontender, nondistended. Positive bowel sounds. Lower extremities: There is no lower extremity edema in the bilateral lower extremities. LABORATORY DATA: WBC 15.4, hemoglobin 12.3, platelet 279. Chemistry: Sodium 141, potassium 4.1, chloride 101, bicarb 34, BUN 30, creatinine 0.85, glucose 92. Chest x-ray shows ET tube in position above the tony. There is bilateral coarse interstitial markings which are unchanged. ASSESSMENT/PLAN: The patient is a 77-year-old female with a history of chronic obstructive pulmonary disease (COPD), chronic hypoxemic respiratory failure on nasal cannula oxygen, diabetes, hyperlipidemia, depression, anxiety, gastroesophageal reflux disease, paroxysmal atrial fibrillation, who presented with acute on chronic hypercarbic and hypoxemic respiratory failure and was intubated after failing a trial of BiPAP. The patient also with sepsis likely secondary to pneumonia as evidenced on a CT chest and also with an acute COPD exacerbation contributing to her acute on chronic hypercarbic hypoxemic respiratory failure. After discussion with the patient's family about her goals of care including with her healthcare proxy, Jesika her sister, the patient had previously only wanted a very short trial of intubation and even then, Jesika reported that the patient had previously told her that she did not want to suffer any further and that her chronic medical illnesses have been causing her to suffer for some time. Therefore after the family had all come to visit her and agreed that her wishes would be to be liberated from the ventilator, the patient had a palliative extubation done yesterday and afterwards she was made comfort measures only. The patient's sister reported that she had previously stated that she would not have wanted a feeding tube and that she would not have wanted any noninvasive positive pressure ventilation either. Therefore patient's Medical orders for life sustaining treatment (MOLST) was updated and medications besides those needed for comfort were discontinued. She was started on a morphine drip which is titrated for comfort. Lab draws and chest x-rays were discontinued. Code status is DO NOT RESUSCITATE/DO NOT INTUBATE. Healthcare proxy is her sister Jesika Springer. Patient was signed out to the hospitalist service with a plan for downgrade to the floors later. Total critical care time spent not including procedures approximately 45 minutes.
--- NOTE | 2018-07-01 10:25 | IPNPDOC ---
Text Note Date of Service The patient was seen on 07/01/18. NOTE Subjective: Patient is a 77-year-old female with a PMHx of Hx of Paroxysmal A. fib (not on anticoagulation), HTN, DM2, DLP, COPD on 2L O2, Depression / Anxiety and GERD who presented to [facility] as a transfer from [facility] with worsening shortness of breath and confusion. Patient was transferred from [facility] for a pulmonology consultation and cardiology consultation. Patient was found to have a narrow complex SVT with heart rate of 190 and right bundle-branch block. She received adenosine a few times and was transitioned to a Cardizem drip. Upon arrival to ICU, patient was placed on BiPAP and was eventually intubated on 06/27/2018 after she was found to have acute on chronic hypercarbic respiratory failure. While patient was in ICU, she was being treated for COPD exacerbation, possibly as a result of viral infection superimposed with a bacterial infection. Patients MOLST form had indicated DO NOT RESUSCITATE and trial of intubation. , However, patient had failed to improve and subsequently on 06/30/2018 patient was terminally extubated. Patient was converted to comfort measures at that time Patient was transferred from Dr. Rizo service to Hospitalist service. Patient was seen and examined at the bedside. Currently does not appear to be any distress. Family is present at the bedside, and I have addressed all their questions and concerns. Objective: Vitals (See below) General: Lying in bed, no acute distress, comfortable, Sleeping Full examination a completed Assessment: Acute on Chronic hypercapnic and hypoxic respiratory failure Acute COPD exacerbation Possible bacterial pneumonia; coverage for Gram negative and MRSA Leukocytosis Paroxysmal A. fib; with recent history of RVR HTN IDDM2 DLP Depression Anxiety GERD DVT prophylaxis Plan: - MOLST form has been updated today by Dr. Rizo and healthcare proxy, Jesika Springer - Will continue the patient with comfort measures medications only - Nonessential medications have a been discontinued - Continue with morphine, Ativan and scopolamine as needed for comfort Code Status: - DNR / DNI / [employer] Disposition: - Hospice consult; possible hospice house or home with hospice VS,Fishbone, I+O VS, Fishbone, I+O Vital Signs Date Time Temp Pulse Resp B/P (MAP) Pulse Ox O2 Delivery O2 Flow Rate FiO2 06/30/18 20:30 3.0 06/30/18 11:00 64 136/61 (86) 93 35 06/30/18 08:00 98.8 18 06/30/18 07:13 Ventilator I&O- Last 24 Hours up to 6 AM 07/01/18 06:00 Intake Total 110 ml Output Total 3200 ml Balance -3090 ml JJ SWANSON MD Jul 01, 2018 10:25
[2018-07-01] MEDS: MORPHINE SULF IN 0.9% NACL 100 MG in APPROPRIATE DILUENT 1 EA IV SCH ×2 (14:46)
--- NOTE | 2018-07-01 18:52 | DS.PDOC ---
Discharge Summary General Date of Admission Jun 27, 2018 at 04:10 Date of Discharge 07/01/2018 Discharge Summary PROCEDURES PERFORMED DURING STAY: Endotracheal intubation with Dr. Mohsen Rizo on 06/27/18 ADMITTING DIAGNOSES / DISCHARGE DIAGNOSES: Acute on Chronic hypercapnic and hypoxic respiratory failure Acute COPD exacerbation Possible bacterial pneumonia; coverage for Gram negative and MRSA Leukocytosis Paroxysmal A. fib; with recent history of RVR HTN IDDM2 DLP Depression Anxiety GERD DVT prophylaxis COMPLICATIONS/CHIEF COMPLAINT: Shortness of breath HISTORY OF PRESENT ILLNESS / HOSPITAL COURSE: Patient is a 77-year-old female with a PMHx of Hx of Paroxysmal A. fib (not on anticoagulation), HTN, DM2, DLP, COPD on 2L O2, Depression / Anxiety and GERD who presented to [facility] as a transfer from [facility] with worsening shortness of breath and confusion. Patient was transferred from [facility] for a pulmonology consultation and cardiology consultation. Patient was found to have a narrow complex SVT with heart rate of 190 and right bundle-branch block. She received adenosine a few times and was transitioned to a Cardizem drip. Upon arrival to ICU, patient was placed on BiPAP and was eventually intubated on 06/27/2018 after she was found to have acute on chronic hypercarbic respiratory failure. While patient was in ICU, she was being treated for COPD exacerbation, possibly as a result of viral infection superimposed with a bacterial infection. Patients MOLST form had indicated DO NOT RESUSCITATE and trial of intubation. However, patient had failed to improve and subsequently on 06/30/2018 patient was terminally extubated. Patient was converted to comfort measures at that time. MOLST form has been updated today by Dr. Rizo and healthcare proxy, Jesika Springer. Patient was transferred from Dr. Rizo service to Hospitalist service. Patient was seen and examined at the bedside. This morning patient does not appear to be any distress. Family is present at the bedside, and I have addressed all their questions and concerns. eventually on 07/01/2018 at 1814. DISCHARGE MEDICATIONS: N/A ALLERGIES: Please see below. PHYSICAL EXAMINATION ON DISCHARGE: Vitals (See below) General: Lying in bed, no acute distress, comfortable, Sleeping Full examination a completed LABORATORY DATA: Please see below. DISCHARGE PLAN: DISPOSITION: TIME SPENT ON DISCHARGE: Greater than [25] minutes. Vital Signs/I&Os Vital Signs Date Time Temp Pulse Resp B/P (MAP) Pulse Ox O2 Delivery O2 Flow Rate FiO2 07/01/18 09:00 3.0 06/30/18 11:00 64 136/61 (86) 93 35 06/30/18 08:00 98.8 18 06/30/18 07:13 Ventilator I&O- Last 24 Hours up to 6 AM 07/01/18 05:59 Intake Total 134.7 ml Output Total 3050 ml Balance -2915.3 ml Microbiology Microbiology 06/27/18 Blood Culture - Preliminary, Resulted No Growth after 72 hours. All specime... 06/27/18 Blood Culture - Preliminary, Resulted No Growth after 72 hours. All specime... 06/27/18 Gram Stain - Final, Complete 06/27/18 Sputum Culture - Final, Complete 06/27/18 Respiratory Virus Panel (PCR) ([facility]) - Final, Complete Human Rhinovirus/Enterovirus 06/27/18 Urine Culture - Final, Complete Discharge Medications Scheduled Albuterol Sulfate (Proair Hfa) 108 Mcg/Act Aer, 2 PUFF INH BID, (Reported) Ascorbic Acid (Vitamin C Gummies) 125 Mg Chw, 125 MG PO DAILY, (Reported) Atorvastatin Calcium (Atorvastatin Calcium) 20 Mg Tab, 20 MG PO DAILY, (Reported) Budesonide/Formoterol (Symbicort 160-4.5 Mcg Inhaler) 60 Puff/Inhaler Aers, 2 PUFF INH BID, (Reported) Buspirone HCl (Buspirone HCl) 10 Mg Tab, 10 MG PO BID, (Reported) Cholecalciferol (Vitamin D3) (Vitamin D3) 2,000 Unit Tab, 2,000 UNIT PO DAILY, (Reported) Citalopram Hydrobromide (Citalopram HBr) 20 Mg Tab, 20 MG PO DAILY, (Reported) Loratadine (Loratadine) 10 Mg Tab, 10 MG PO DAILY, (Reported) Metoprolol Tartrate (Metoprolol Tartrate) 25 Mg Tab, 25 MG PO BID, (Reported) Omeprazole (Omeprazole) 40 Mg Cap, 40 MG PO DAILY, (Reported) Prednisone (Prednisone) 20 Mg Tab, 20 MG PO DAILY, (Reported) Roflumilast (Daliresp) 500 Mcg Tab, 500 MCG PO DAILY, (Reported) Tiotropium [place] Monohydrate (Spiriva) 5 Inhalation/Inhaler Powd, 1 PUFF INH DAILY, (Reported) Allergies Coded Allergies: No Known Allergies (Unverified , 09/17/17) JJ SWANSON MD Jul 01, 2018 18:52
== END 2018-07-01 18:14 | disposition expired | DRG 208 ==
LOC: M ICU 04:10 → M MSPAV 06-30 12:42
PROVIDERS: ADMIT Student in an Organized Health Care Education/Training Program; ATTEND Internal Medicine
PROC: 5A1945Z Respiratory Ventilation, 24-96 Consecutive Hours (ICD-10-PCS; principal; 2018-06-27)
PROC: 0BH17EZ Insertion of Endotracheal Airway into Trachea, Via Natural or Artificial Opening (ICD-10-PCS; 2018-06-27)
DX: J96.21 Acute and chronic respiratory failure with hypoxia (principal); J15.9 Unspecified bacterial pneumonia; A41.9 Sepsis, unspecified organism; G93.41 Metabolic encephalopathy; R65.20 Severe sepsis without septic shock; J44.0 Chronic obstructive pulmonary disease with (acute) lower respiratory infection; J44.1 Chronic obstructive pulmonary disease with (acute) exacerbation; E87.3 Alkalosis; N17.9 Acute kidney failure, unspecified; J96.22 Acute and chronic respiratory failure with hypercapnia; Z51.5 Encounter for palliative care; Z66 Do not resuscitate; F32.9 Major depressive disorder, single episode, unspecified; E78.5 Hyperlipidemia, unspecified; I27.20 Pulmonary hypertension, unspecified; E87.6 Hypokalemia; E11.9 Type 2 diabetes mellitus without complications; F41.9 Anxiety disorder, unspecified; K21.9 Gastro-esophageal reflux disease without esophagitis; I48.0 Paroxysmal atrial fibrillation; Z79.899 Other long term (current) drug therapy; Z99.81 Dependence on supplemental oxygen